=== PATIENT | male | born 1960 | race Hispanic/Latino ===

== ENCOUNTER 2020-08-20 11:33 | Inpatient (IN) | payer MEDICARE ==
[~2020-08-20] VITALS: Ht 167.6 cm; Wt 83.5 kg
[2020-08-20 11:50] LABS: ABG OXYGEN SATURATION 58.1 % (95.0-99.0); ABG PCO2 26 mmHg (35-48)
[2020-08-20] MEDS ORDERED: CEFTRIAXONE 1G VIAL ONE (12:06)
[2020-08-20] MEDS ORDERED: AZITHROMYCIN 500MG+NS 250ML 250 ML IV ONE (12:06)
[2020-08-20] MEDS ORDERED: DEXAMETHASONE SOD PHOSPHATE 10MG/ML 1ML VIAL ONE (12:06)
[2020-08-20 12:26] LABS: BASOPHILS % (AUTO) 0.2 % (0.0-5.0); EOSINOPHILS % (AUTO) 1.8 % (0.0-8.0); LYMPHOCYTES % (AUTO) 10.8 % (21.0-51.0); MEAN CORPUSCULAR HEMOGLOBIN 30.9 pg (27.0-33.0); MEAN CORPUSCULAR HGB CONC 34.3 g/dL (32.0-36.0); MEAN CORPUSCULAR VOLUME 90.1 fL (79-99); MONOCYTES % (AUTO) 6.9 % (3.0-13.0); NEUTROPHILS % (AUTO) 80.1 % (40.0-77.0); PLATELET COUNT (AUTO) 237 K/uL (130-400); RED BLOOD CELL COUNT(AUTO) 4.66 MIL/uL (4.50-6.20); RED CELL DISTRIBUTION WIDTH 13.2 % (11.0-15.5); WHITE BLOOD COUNT (AUTO) 9.3 K/uL (4.8-10.8)
[2020-08-20 12:32] LABS: CREATININE 1.1 mg/dL (0.5-1.5)
[2020-08-20 12:33] LABS: INR 1.06 (0.85-1.15); PROTHROMBIN TIME 11.3 SEC (9.6-11.6)
[2020-08-20 12:34] LABS: PARTIAL THROMBOPLASTIN TIME 28.8 SEC (26.3-35.5)
[2020-08-20 12:40] LABS: ALBUMIN 3.1 g/dL (3.5-5.0); BILIRUBIN,TOTAL 0.8 mg/dL (0.2-1.0); CRP QUANTITATIVE 179.7 mg/L (0.00-9.0); TOTAL PROTEIN, SERUM 7.6 g/dL (6.0-8.3); TROPONIN I 0.3 ng/mL (0.00-0.06)
[2020-08-20 14:01] LABS: ABG BASE EXCESS 1.8 mmol/L (-2.0-3.0); ABG HCO3 25.3 mmol/L (21.0-28.0); ABG OXYGEN SATURATION 82.8 % (95.0-99.0); ABG PCO2 37 mmHg (35-48)
[2020-08-20 14:18] LABS: ABG BASE EXCESS 1.1 mmol/L (-2.0-3.0); ABG HCO3 24.5 mmol/L (21.0-28.0); ABG OXYGEN SATURATION 84.1 % (95.0-99.0); ABG PCO2 35 mmHg (35-48)
[2020-08-20] MEDS ORDERED: ASPIRIN 325 MG TABLET ONE (15:00)
[2020-08-20] MEDS ORDERED: DOXYCYCLINE 100MG+NS 250ML IV SCH (15:30)
[2020-08-20] MEDS ORDERED: CEFEPIME HCL 2 GM VIAL IVP SCH (15:30)
[2020-08-20] MEDS ORDERED: ERGOCALCIFEROL (VITAMIN D2) 50,000 UNIT CAPSULE PO ONE (15:30)
[2020-08-20 15:33] LABS: APPEARANCE,URINE Clear (CLEAR); BILIRUBIN,URINE Small (NEGATIVE); COLOR,URINE Dark Yellow (YELLOW); GLUCOSE, URINE (UA) >=1000 mg/dL (NEGATIVE); KETONES,URINE Trace mg/dL (NEGATIVE); LEUKOCYTE ESTERASE ,URINE Negative (NEGATIVE); NITRATE,URINE Negative (NEGATIVE); OCCULT BLOOD,URINE Negative (NEGATIVE); PH,URINE 5.5 (5.0-8.0); PROTEIN,URINE POS 1+ mg/dL (NEGATIVE)
[2020-08-20] MEDS ORDERED: CEFEPIME HCL 2 GM VIAL ONE (15:55)
[2020-08-20] MEDS ORDERED: INSULIN HUMULIN R 100 UNIT/ML 3ML ONE (15:56)
[2020-08-20] MEDS ORDERED: PHARMACY COMMUNICATION***REMDESIVIR ORDER MISC SCH (16:00)
[2020-08-20] MEDS ORDERED: DOXYCYCLINE 100MG+NS 250ML 250 ML IV SCH (16:00)
[2020-08-20] MEDS: INSULIN HUMULIN R 100 UNIT/ML 3ML SQ SCH ×2 (16:30→21:00)
[2020-08-20 16:43] LABS: BACTERIA,URINE Rare /HPF (None Seen); RBC,URINE 0-1 /HPF (0-1); SQUAMOUS EPITHELIAL CELL,UR Rare /HPF (0-2); WBC,URINE 0-1 /HPF (0-1)
[2020-08-20 17:04] LABS: THYROID STIMULATING HORMONE 1.52 uIU/mL (0.36-3.74)
[2020-08-20] MEDS ORDERED: TAMS-1 PO (18:16)
[2020-08-20] MEDS ORDERED: LISI2.5T13 PO (18:16)
[2020-08-20] MEDS ORDERED: AEC81 PO (18:16)
[2020-08-20] MEDS ORDERED: LOVA40TA2 PO (18:16)
[2020-08-20] MEDS ORDERED: CARV6.25 PO (18:16)
[2020-08-20] MEDS ORDERED: CETI10CA5 PO (18:16)
[2020-08-20 18:17] VITALS: BP 123/60
[2020-08-20 19:40] VITALS: BP 90/57
[2020-08-20] MEDS ORDERED: PHARMACY COMMUNICATION MISC SCH (20:30)
[2020-08-20] MEDS ORDERED: ACETYLCYSTEINE 600 MG CAPSULE PO SCH (21:00)
[2020-08-20] MEDS ORDERED: ACETYLCYSTEINE 600 MG CAPSULE ONE (21:04)
[2020-08-20] MEDS: FUROSEMIDE 20MG VIAL IV SCH (21:39)
[2020-08-20] MEDS: DEXAMETHASONE SOD PHOSPHATE 4 MG/ML 1ML VIAL IVP SCH (21:39)
[2020-08-20 23:51] VITALS: BP 108/67
[2020-08-21] MEDS: GUAIFENESIN-DM 200/20 MG 10 ML PO PRN (02:42)
[2020-08-21 03:44] VITALS: BP 106/64
[2020-08-21] MEDS ORDERED: PHARMACY COMMUNICATION MISC SCH (05:45)
[2020-08-21 06:21] LABS: CRP QUANTITATIVE 137.9 mg/L (0.00-9.0)
[2020-08-21] MEDS: INSULIN HUMULIN R 100 UNIT/ML 3ML SQ SCH ×4 (06:23→20:44)
[2020-08-21] MEDS ORDERED: COMPOUND IV REFRIGERATED 1 EACH IVSOLN MISC PRN (06:45)
[2020-08-21] MEDS ORDERED: REMDESIVIR (EUA) 520 200 MG in 0.9% NACL 250ML 250 ML IV ONE (06:45)
[2020-08-21] MEDS: FUROSEMIDE 20MG VIAL IV SCH ×2 (06:56→18:00)
[2020-08-21 07:25] LABS: BASOPHILS % (AUTO) 0.2 % (0.0-5.0); HEMATOCRIT 41.3 % (42-54); LYMPHOCYTES % (AUTO) 14.3 % (21.0-51.0); MEAN CORPUSCULAR HGB CONC 33.9 g/dL (32.0-36.0); MEAN CORPUSCULAR VOLUME 91.4 fL (79-99); MONOCYTES % (AUTO) 6.5 % (3.0-13.0); NEUTROPHILS % (AUTO) 78.7 % (40.0-77.0); PLATELET COUNT (AUTO) 243 K/uL (130-400); RED BLOOD CELL COUNT(AUTO) 4.52 MIL/uL (4.50-6.20); RED CELL DISTRIBUTION WIDTH 13.2 % (11.0-15.5); WHITE BLOOD COUNT (AUTO) 5.9 K/uL (4.8-10.8)
[2020-08-21 08:00] VITALS: BP 107/69
[2020-08-21 08:44] LABS: ALBUMIN 2.8 g/dL (3.5-5.0); BILIRUBIN,TOTAL 0.5 mg/dL (0.2-1.0); CREATININE 1.1 mg/dL (0.5-1.5); POTASSIUM 4.1 mmol/L (3.5-5.1)
[2020-08-21] MEDS ORDERED: CARVEDILOL 6.25 MG TABLET PO SCH (09:00)
[2020-08-21] MEDS: ZINC SULFATE 220 CAPSULE PO SCH (09:04)
[2020-08-21] MEDS: PANTOPRAZOLE 40 MG TAB DR PO SCH (09:04)
[2020-08-21] MEDS: ASCORBIC ACID 500 MG TAB PO SCH (09:04)
[2020-08-21] MEDS: DEXAMETHASONE SOD PHOSPHATE 4 MG/ML 1ML VIAL IVP SCH ×2 (09:05→20:43)
[2020-08-21] MEDS: ASPIRIN 81MG CHEW TAB PO SCH (09:05)
[2020-08-21] MEDS: TAMSULOSIN HCL 0.4 MG CAP.ER.24H PO SCH (10:47)
[2020-08-21 12:00] VITALS: BP 115/65
[2020-08-21 15:33] VITALS: BP 123/65
[2020-08-21] MEDS: ENOXAPARIN SODIUM 40 MG/0.4 ML SYRINGE SQ SCH (16:20)
[2020-08-21 17:40] VITALS: BP 123/71
[2020-08-21 20:04] VITALS: BP 144/95
[2020-08-21] MEDS: ATORVASTATIN 10 MG TABLET PO SCH (20:51)
[2020-08-22] VITALS (7 sets, daily range): BP systolic 106–120; BP diastolic 57–76
[2020-08-22 04:17] LABS: CRP QUANTITATIVE 70.9 mg/L (0.00-9.0)
[2020-08-22 04:29] LABS: BASOPHILS % (AUTO) 0.1 % (0.0-5.0); EOSINOPHILS % (AUTO) 1.8 % (0.0-8.0); HEMATOCRIT 43.5 % (42-54); LYMPHOCYTES % (AUTO) 10.4 % (21.0-51.0); MEAN CORPUSCULAR HEMOGLOBIN 30.6 pg (27.0-33.0); MEAN CORPUSCULAR HGB CONC 33.8 g/dL (32.0-36.0); MEAN CORPUSCULAR VOLUME 90.6 fL (79-99); MONOCYTES % (AUTO) 6.2 % (3.0-13.0); NEUTROPHILS % (AUTO) 81.2 % (40.0-77.0); PLATELET COUNT (AUTO) 318 K/uL (130-400); WHITE BLOOD COUNT (AUTO) 7.6 K/uL (4.8-10.8)
[2020-08-22 04:37] LABS: ALBUMIN 2.8 g/dL (3.5-5.0); BILIRUBIN,TOTAL 0.6 mg/dL (0.2-1.0); CREATININE 0.9 mg/dL (0.5-1.5); POTASSIUM 4.2 mmol/L (3.5-5.1); TOTAL PROTEIN, SERUM 7.1 g/dL (6.0-8.3)
[2020-08-22] MEDS: INSULIN HUMULIN R 100 UNIT/ML 3ML SQ SCH ×4 (05:42→22:08)
[2020-08-22] MEDS: PHARMACY COMMUNICATION MISC SCH (06:00)
[2020-08-22] MEDS: FUROSEMIDE 20MG VIAL IV SCH ×2 (06:22→18:14)
[2020-08-22] MEDS: ASCORBIC ACID 500 MG TAB PO SCH (08:21)
[2020-08-22] MEDS: PANTOPRAZOLE 40 MG TAB DR PO SCH (08:21)
[2020-08-22] MEDS: ZINC SULFATE 220 CAPSULE PO SCH (08:21)
[2020-08-22] MEDS: DEXAMETHASONE SOD PHOSPHATE 4 MG/ML 1ML VIAL IVP SCH ×2 (08:22→22:07)
[2020-08-22] MEDS: ENOXAPARIN SODIUM 40 MG/0.4 ML SYRINGE SQ SCH (08:22)
[2020-08-22] MEDS: ASPIRIN 81MG CHEW TAB PO SCH (08:22)
[2020-08-22] MEDS: TAMSULOSIN HCL 0.4 MG CAP.ER.24H PO SCH (08:26)
[2020-08-22] MEDS: REMDESIVIR (EUA) 520 100 MG in 0.9% NACL 250ML 250 ML IV SCH (13:14)
[2020-08-22] MEDS: ATORVASTATIN 10 MG TABLET PO SCH (22:12)
[2020-08-23] VITALS: BP 116/75
[2020-08-23] MEDS: GUAIFENESIN-DM 200/20 MG 10 ML PO PRN ×2 (03:43→20:58)
[2020-08-23 04:00] VITALS: BP 122/84
[2020-08-23 05:17] LABS: BASOPHILS % (AUTO) 0.1 % (0.0-5.0); EOSINOPHILS % (AUTO) 1.8 % (0.0-8.0); LYMPHOCYTES % (AUTO) 7.7 % (21.0-51.0); MEAN CORPUSCULAR HEMOGLOBIN 30.7 pg (27.0-33.0); MEAN CORPUSCULAR HGB CONC 33.8 g/dL (32.0-36.0); MEAN CORPUSCULAR VOLUME 90.9 fL (79-99); MONOCYTES % (AUTO) 6.2 % (3.0-13.0); PLATELET COUNT (AUTO) 336 K/uL (130-400); RED BLOOD CELL COUNT(AUTO) 4.95 MIL/uL (4.50-6.20); RED CELL DISTRIBUTION WIDTH 13.1 % (11.0-15.5); WHITE BLOOD COUNT (AUTO) 8.3 K/uL (4.8-10.8)
[2020-08-23 05:37] LABS: ALBUMIN 2.7 g/dL (3.5-5.0); BILIRUBIN,TOTAL 0.5 mg/dL (0.2-1.0); CREATININE 0.9 mg/dL (0.5-1.5); CRP QUANTITATIVE 38.5 mg/L (0.00-9.0); POTASSIUM 4.1 mmol/L (3.5-5.1); TOTAL PROTEIN, SERUM 7.2 g/dL (6.0-8.3)
[2020-08-23] MEDS: PHARMACY COMMUNICATION MISC SCH (06:00)
[2020-08-23] MEDS: INSULIN HUMULIN R 100 UNIT/ML 3ML SQ SCH ×4 (06:30→21:03)
[2020-08-23] MEDS: FUROSEMIDE 20MG VIAL IV SCH ×2 (06:35→18:12)
[2020-08-23 08:00] VITALS: BP 126/79
[2020-08-23] MEDS: TAMSULOSIN HCL 0.4 MG CAP.ER.24H PO SCH (08:30)
[2020-08-23] MEDS: ASPIRIN 81MG CHEW TAB PO SCH (08:30)
[2020-08-23] MEDS: ENOXAPARIN SODIUM 40 MG/0.4 ML SYRINGE SQ SCH (08:31)
[2020-08-23] MEDS: PANTOPRAZOLE 40 MG TAB DR PO SCH (08:31)
[2020-08-23] MEDS: ASCORBIC ACID 500 MG TAB PO SCH (08:31)
[2020-08-23] MEDS: ZINC SULFATE 220 CAPSULE PO SCH (08:31)
[2020-08-23] MEDS: DEXAMETHASONE SOD PHOSPHATE 4 MG/ML 1ML VIAL IVP SCH ×2 (08:42→20:58)
[2020-08-23] MEDS ORDERED: RENAL DOSE IV SCH (10:45)
[2020-08-23 12:00] VITALS: BP 116/86
[2020-08-23] MEDS: REMDESIVIR (EUA) 520 100 MG in 0.9% NACL 250ML 250 ML IV SCH (12:58)
[2020-08-23 16:00] VITALS: BP 104/48
[2020-08-23] MEDS ORDERED: 0.9% NACL 250ML 250 ML IV ONE (17:43)
[2020-08-23 20:38] VITALS: BP 113/72
[2020-08-23] MEDS: ATORVASTATIN 10 MG TABLET PO SCH (20:58)
[2020-08-24 00:02] VITALS: BP 114/66
[2020-08-24 04:17] VITALS: BP 110/62
[2020-08-24 06:06] LABS: BASOPHILS % (AUTO) 0.1 % (0.0-5.0); HEMATOCRIT 43.3 % (42-54); LYMPHOCYTES % (AUTO) 10.8 % (21.0-51.0); MEAN CORPUSCULAR HEMOGLOBIN 30.9 pg (27.0-33.0); MEAN CORPUSCULAR HGB CONC 34.2 g/dL (32.0-36.0); MEAN CORPUSCULAR VOLUME 90.4 fL (79-99); MONOCYTES % (AUTO) 6.2 % (3.0-13.0); NEUTROPHILS % (AUTO) 82.2 % (40.0-77.0); PLATELET COUNT (AUTO) 354 K/uL (130-400); RED BLOOD CELL COUNT(AUTO) 4.79 MIL/uL (4.50-6.20); WHITE BLOOD COUNT (AUTO) 10.6 K/uL (4.8-10.8)
[2020-08-24 06:34] LABS: ALBUMIN 2.7 g/dL (3.5-5.0); BILIRUBIN,TOTAL 0.5 mg/dL (0.2-1.0); CREATININE 0.9 mg/dL (0.5-1.5); CRP QUANTITATIVE 17.2 mg/L (0.00-9.0); POTASSIUM 3.9 mmol/L (3.5-5.1); TOTAL PROTEIN, SERUM 6.6 g/dL (6.0-8.3)
[2020-08-24] MEDS: INSULIN HUMULIN R 100 UNIT/ML 3ML SQ SCH ×4 (06:37→21:50)
[2020-08-24] MEDS: FUROSEMIDE 20MG VIAL IV SCH ×2 (06:48→21:46)
[2020-08-24] MEDS: ASCORBIC ACID 500 MG TAB PO SCH (08:22)
[2020-08-24] MEDS: DEXAMETHASONE SOD PHOSPHATE 4 MG/ML 1ML VIAL IVP SCH ×2 (08:22→21:46)
[2020-08-24] MEDS: ASPIRIN 81MG CHEW TAB PO SCH (08:22)
[2020-08-24] MEDS: TAMSULOSIN HCL 0.4 MG CAP.ER.24H PO SCH (08:22)
[2020-08-24] MEDS: ZINC SULFATE 220 CAPSULE PO SCH (08:23)
[2020-08-24] MEDS: PANTOPRAZOLE 40 MG TAB DR PO SCH (08:23)
[2020-08-24] MEDS: ENOXAPARIN SODIUM 40 MG/0.4 ML SYRINGE SQ SCH ×2 (08:23→21:48)
[2020-08-24 12:00] VITALS: BP 101/64
[2020-08-24] MEDS ORDERED: LIDOCAINE HCL-MPF 1% 2ML VIAL IV PRN (12:45)
[2020-08-24] MEDS: REMDESIVIR (EUA) 520 100 MG in 0.9% NACL 250ML 250 ML IV SCH (14:05)
[2020-08-24 16:00] VITALS: BP 106/67
[2020-08-24] MEDS: NACL NASAL SPRAY 120 SPRAY/BOTTLE NS SCH ×3 (16:01→21:00)
[2020-08-24 20:27] VITALS: BP 113/71
[2020-08-24] MEDS: GUAIFENESIN-DM 200/20 MG 10 ML PO PRN (21:45)
[2020-08-24] MEDS: ATORVASTATIN 10 MG TABLET PO SCH (21:45)
[2020-08-24 23:46] VITALS: BP 118/71
[2020-08-25 03:29] VITALS: BP 121/73
[2020-08-25] MEDS: INSULIN HUMULIN R 100 UNIT/ML 3ML SQ SCH ×4 (05:47→21:52)
[2020-08-25] MEDS: FUROSEMIDE 20MG VIAL IV SCH (05:55)
[2020-08-25 06:00] LABS: BASOPHILS % (AUTO) 0.1 % (0.0-5.0); LYMPHOCYTES % (AUTO) 6.6 % (21.0-51.0); MEAN CORPUSCULAR HGB CONC 33.4 g/dL (32.0-36.0); MEAN CORPUSCULAR VOLUME 89.9 fL (79-99); MONOCYTES % (AUTO) 4.1 % (3.0-13.0); NEUTROPHILS % (AUTO) 88.5 % (40.0-77.0); PLATELET COUNT (AUTO) 389 K/uL (130-400); RED BLOOD CELL COUNT(AUTO) 5.23 MIL/uL (4.50-6.20); RED CELL DISTRIBUTION WIDTH 12.9 % (11.0-15.5); WHITE BLOOD COUNT (AUTO) 11.6 K/uL (4.8-10.8)
[2020-08-25 06:34] LABS: ALBUMIN 2.7 g/dL (3.5-5.0); BILIRUBIN,TOTAL 0.7 mg/dL (0.2-1.0); CREATININE 0.8 mg/dL (0.5-1.5); CRP QUANTITATIVE 31.1 mg/L (0.00-9.0); MAGNESIUM 2.5 mg/dL (1.80-2.40); TOTAL PROTEIN, SERUM 6.7 g/dL (6.0-8.3)
[2020-08-25 08:00] VITALS: BP 111/74
[2020-08-25] MEDS: ASPIRIN 81MG CHEW TAB PO SCH (08:20)
[2020-08-25] MEDS: DEXAMETHASONE SOD PHOSPHATE 4 MG/ML 1ML VIAL IVP SCH ×2 (08:21→21:41)
[2020-08-25] MEDS: TAMSULOSIN HCL 0.4 MG CAP.ER.24H PO SCH (08:21)
[2020-08-25] MEDS: ASCORBIC ACID 500 MG TAB PO SCH (08:21)
[2020-08-25] MEDS: PANTOPRAZOLE 40 MG TAB DR PO SCH (08:21)
[2020-08-25] MEDS: ZINC SULFATE 220 CAPSULE PO SCH (08:21)
[2020-08-25] MEDS: ENOXAPARIN SODIUM 40 MG/0.4 ML SYRINGE SQ SCH ×2 (08:22→21:41)
[2020-08-25] MEDS: NACL NASAL SPRAY 120 SPRAY/BOTTLE NS SCH ×4 (08:30→21:52)
[2020-08-25 12:00] VITALS: BP 114/67
[2020-08-25] MEDS: FUROSEMIDE 20 MG TABLET PO SCH ×2 (12:36→21:42)
[2020-08-25] MEDS: REMDESIVIR (EUA) 520 100 MG in 0.9% NACL 250ML 250 ML IV SCH (15:11)
[2020-08-25 16:00] VITALS: BP 117/69
[2020-08-25 20:00] VITALS: BP 114/68
[2020-08-25] MEDS: ATORVASTATIN 10 MG TABLET PO SCH (21:42)
[2020-08-26] VITALS: BP 137/61
[2020-08-26 03:53] LABS: ABG BASE EXCESS 2.7 mmol/L (-2.0-3.0); ABG HCO3 25.8 mmol/L (21.0-28.0); ABG OXYGEN SATURATION 92.1 % (95.0-99.0); ABG PCO2 35 mmHg (35-48)
[2020-08-26 03:54] VITALS: BP 115/60
[2020-08-26 05:31] LABS: BASOPHILS % (AUTO) 0.2 % (0.0-5.0); HEMATOCRIT 45.7 % (42-54); LYMPHOCYTES % (AUTO) 5.9 % (21.0-51.0); MEAN CORPUSCULAR HEMOGLOBIN 31.3 pg (27.0-33.0); MEAN CORPUSCULAR HGB CONC 35.4 g/dL (32.0-36.0); MEAN CORPUSCULAR VOLUME 88.2 fL (79-99); MONOCYTES % (AUTO) 2.6 % (3.0-13.0); NEUTROPHILS % (AUTO) 90.6 % (40.0-77.0); PLATELET COUNT (AUTO) 393 K/uL (130-400); RED BLOOD CELL COUNT(AUTO) 5.18 MIL/uL (4.50-6.20); RED CELL DISTRIBUTION WIDTH 12.7 % (11.0-15.5)
[2020-08-26 05:48] LABS: ALBUMIN 2.6 g/dL (3.5-5.0); BILIRUBIN,TOTAL 0.7 mg/dL (0.2-1.0); CREATININE 0.8 mg/dL (0.5-1.5); CRP QUANTITATIVE 38.5 mg/L (0.00-9.0); POTASSIUM 4.1 mmol/L (3.5-5.1); TOTAL PROTEIN, SERUM 6.8 g/dL (6.0-8.3)
[2020-08-26] MEDS: INSULIN HUMULIN R 100 UNIT/ML 3ML SQ SCH ×4 (06:12→20:49)
[2020-08-26 07:15] VITALS: BP 123/77
[2020-08-26] MEDS: ZINC SULFATE 220 CAPSULE PO SCH (09:38)
[2020-08-26] MEDS: ASCORBIC ACID 500 MG TAB PO SCH (09:38)
[2020-08-26] MEDS: TAMSULOSIN HCL 0.4 MG CAP.ER.24H PO SCH (09:39)
[2020-08-26] MEDS: PANTOPRAZOLE 40 MG TAB DR PO SCH (09:39)
[2020-08-26] MEDS: ASPIRIN 81MG CHEW TAB PO SCH (09:39)
[2020-08-26] MEDS: ENOXAPARIN SODIUM 40 MG/0.4 ML SYRINGE SQ SCH ×2 (09:40→21:22)
[2020-08-26] MEDS: NACL NASAL SPRAY 120 SPRAY/BOTTLE NS SCH ×4 (09:46→21:23)
[2020-08-26] MEDS: DEXAMETHASONE SOD PHOSPHATE 4 MG/ML 1ML VIAL IVP SCH ×2 (10:17→21:22)
[2020-08-26 10:32] VITALS: BP 116/70
[2020-08-26] MEDS: FUROSEMIDE 20 MG TABLET PO SCH ×2 (11:56→21:22)
[2020-08-26 15:11] VITALS: BP 99/57
[2020-08-26 20:42] VITALS: BP_SYST 115; BP_SYST 15; BP_DIAS 77
[2020-08-26] MEDS: ATORVASTATIN 10 MG TABLET PO SCH (21:21)
[2020-08-26] MEDS: GUAIFENESIN-DM 200/20 MG 10 ML PO PRN (21:22)
[2020-08-27] VITALS (7 sets, daily range): BP systolic 107–124; BP diastolic 51–82
[2020-08-27 05:50] LABS: BASOPHILS % (AUTO) 0.1 % (0.0-5.0); HEMATOCRIT 46.9 % (42-54); LYMPHOCYTES % (AUTO) 6.1 % (21.0-51.0); MEAN CORPUSCULAR HEMOGLOBIN 30.4 pg (27.0-33.0); MEAN CORPUSCULAR HGB CONC 34.5 g/dL (32.0-36.0); MONOCYTES % (AUTO) 3.2 % (3.0-13.0); NEUTROPHILS % (AUTO) 90.2 % (40.0-77.0); PLATELET COUNT (AUTO) 388 K/uL (130-400); RED BLOOD CELL COUNT(AUTO) 5.33 MIL/uL (4.50-6.20); RED CELL DISTRIBUTION WIDTH 12.8 % (11.0-15.5); WHITE BLOOD COUNT (AUTO) 11.3 K/uL (4.8-10.8)
[2020-08-27] MEDS: INSULIN HUMULIN R 100 UNIT/ML 3ML SQ SCH ×4 (05:55→21:00)
[2020-08-27 06:09] LABS: ALBUMIN 2.6 g/dL (3.5-5.0); BILIRUBIN,TOTAL 0.7 mg/dL (0.2-1.0); CREATININE 0.9 mg/dL (0.5-1.5); POTASSIUM 4.1 mmol/L (3.5-5.1); TOTAL PROTEIN, SERUM 6.8 g/dL (6.0-8.3)
[2020-08-27] MEDS: DEXAMETHASONE SOD PHOSPHATE 4 MG/ML 1ML VIAL IVP SCH ×2 (07:59→20:16)
[2020-08-27] MEDS: ASCORBIC ACID 500 MG TAB PO SCH (08:00)
[2020-08-27] MEDS: ZINC SULFATE 220 CAPSULE PO SCH (08:00)
[2020-08-27] MEDS: PANTOPRAZOLE 40 MG TAB DR PO SCH (08:01)
[2020-08-27] MEDS: DOCUSATE SODIUM 100 MG CAP PO SCH (08:01)
[2020-08-27] MEDS: TAMSULOSIN HCL 0.4 MG CAP.ER.24H PO SCH (08:01)
[2020-08-27] MEDS: ASPIRIN 81MG CHEW TAB PO SCH (08:01)
[2020-08-27] MEDS: ENOXAPARIN SODIUM 40 MG/0.4 ML SYRINGE SQ SCH ×2 (08:02→20:15)
[2020-08-27] MEDS: NACL NASAL SPRAY 120 SPRAY/BOTTLE NS SCH ×4 (08:02→20:16)
[2020-08-27] MEDS: FUROSEMIDE 20 MG TABLET PO SCH ×2 (12:55→22:42)
[2020-08-27] MEDS: ATORVASTATIN 10 MG TABLET PO SCH (20:15)
[2020-08-27] MEDS: GUAIFENESIN-DM 200/20 MG 10 ML PO PRN (22:42)
[2020-08-28 03:17] VITALS: BP 108/80
[2020-08-28 04:56] LABS: BASOPHILS % (AUTO) 0.2 % (0.0-5.0); HEMATOCRIT 50.9 % (42-54); LYMPHOCYTES % (AUTO) 4.3 % (21.0-51.0); MEAN CORPUSCULAR HEMOGLOBIN 30.9 pg (27.0-33.0); MEAN CORPUSCULAR HGB CONC 34.8 g/dL (32.0-36.0); MONOCYTES % (AUTO) 2.9 % (3.0-13.0); NEUTROPHILS % (AUTO) 92.1 % (40.0-77.0); PLATELET COUNT (AUTO) 398 K/uL (130-400); RED BLOOD CELL COUNT(AUTO) 5.72 MIL/uL (4.50-6.20); RED CELL DISTRIBUTION WIDTH 12.8 % (11.0-15.5); WHITE BLOOD COUNT (AUTO) 9.4 K/uL (4.8-10.8)
[2020-08-28 05:12] LABS: ALBUMIN 2.6 g/dL (3.5-5.0); BILIRUBIN,TOTAL 0.8 mg/dL (0.2-1.0); CREATININE 0.9 mg/dL (0.5-1.5); CRP QUANTITATIVE 28.3 mg/L (0.00-9.0); POTASSIUM 4.3 mmol/L (3.5-5.1); TOTAL PROTEIN, SERUM 7.1 g/dL (6.0-8.3)
[2020-08-28] MEDS: INSULIN HUMULIN R 100 UNIT/ML 3ML SQ SCH ×5 (05:19→21:24)
[2020-08-28 08:00] VITALS: BP 125/93
[2020-08-28] MEDS: DEXAMETHASONE SOD PHOSPHATE 4 MG/ML 1ML VIAL IVP SCH ×2 (08:58→21:19)
[2020-08-28] MEDS: TAMSULOSIN HCL 0.4 MG CAP.ER.24H PO SCH (08:59)
[2020-08-28] MEDS: ASPIRIN 81MG CHEW TAB PO SCH (08:59)
[2020-08-28] MEDS: ENOXAPARIN SODIUM 40 MG/0.4 ML SYRINGE SQ SCH ×2 (09:00→21:20)
[2020-08-28] MEDS: ASCORBIC ACID 500 MG TAB PO SCH (09:00)
[2020-08-28] MEDS: ZINC SULFATE 220 CAPSULE PO SCH (09:00)
[2020-08-28] MEDS: PANTOPRAZOLE 40 MG TAB DR PO SCH (09:00)
[2020-08-28] MEDS: DOCUSATE SODIUM 100 MG CAP PO SCH (09:00)
[2020-08-28] MEDS: NACL NASAL SPRAY 120 SPRAY/BOTTLE NS SCH ×4 (09:41→21:27)
[2020-08-28 11:22] LABS: ABG BASE EXCESS 3.1 mmol/L (-2.0-3.0); ABG HCO3 25.9 mmol/L (21.0-28.0); ABG OXYGEN SATURATION 90.2 % (95.0-99.0); ABG PCO2 35 mmHg (35-48)
[2020-08-28] MEDS: FUROSEMIDE 20MG VIAL IV SCH ×2 (11:33→21:19)
[2020-08-28 12:00] VITALS: BP 124/88
[2020-08-28 16:00] VITALS: BP 129/90
[2020-08-28 20:26] VITALS: BP 117/82
[2020-08-28] MEDS: ATORVASTATIN 10 MG TABLET PO SCH (21:19)
[2020-08-28] MEDS: GUAIFENESIN-DM 200/20 MG 10 ML PO PRN (21:19)
[2020-08-29] VITALS (26 sets, daily range): BP systolic 84–144; BP diastolic 43–105
[2020-08-29] MEDS: FUROSEMIDE 20MG VIAL IV SCH (04:50)
[2020-08-29 06:10] LABS: BASOPHILS % (AUTO) 0.1 % (0.0-5.0); HEMATOCRIT 52.1 % (42-54); MEAN CORPUSCULAR HEMOGLOBIN 30.4 pg (27.0-33.0); MEAN CORPUSCULAR HGB CONC 34.4 g/dL (32.0-36.0); MEAN CORPUSCULAR VOLUME 88.5 fL (79-99); MONOCYTES % (AUTO) 3.2 % (3.0-13.0); NEUTROPHILS % (AUTO) 92.2 % (40.0-77.0); PLATELET COUNT (AUTO) 398 K/uL (130-400); RED BLOOD CELL COUNT(AUTO) 5.89 MIL/uL (4.50-6.20)
[2020-08-29] MEDS: INSULIN HUMULIN R 100 UNIT/ML 3ML SQ SCH ×4 (06:29→20:34)
[2020-08-29 06:31] LABS: ALBUMIN 2.7 g/dL (3.5-5.0); BILIRUBIN,TOTAL 0.9 mg/dL (0.2-1.0); CREATININE 0.9 mg/dL (0.5-1.5); POTASSIUM 3.8 mmol/L (3.5-5.1); TOTAL PROTEIN, SERUM 7.3 g/dL (6.0-8.3)
[2020-08-29] MEDS: DEXAMETHASONE SOD PHOSPHATE 4 MG/ML 1ML VIAL IVP SCH (09:12)
[2020-08-29] MEDS: DOCUSATE SODIUM 100 MG CAP PO SCH (09:14)
[2020-08-29] MEDS: TAMSULOSIN HCL 0.4 MG CAP.ER.24H PO SCH (09:14)
[2020-08-29] MEDS: ASPIRIN 81MG CHEW TAB PO SCH (09:14)
[2020-08-29] MEDS: ASCORBIC ACID 500 MG TAB PO SCH (09:14)
[2020-08-29] MEDS: ENOXAPARIN SODIUM 40 MG/0.4 ML SYRINGE SQ SCH ×2 (09:14→20:31)
[2020-08-29] MEDS: ZINC SULFATE 220 CAPSULE PO SCH (09:14)
[2020-08-29] MEDS: PANTOPRAZOLE 40 MG TAB DR PO SCH (09:14)
[2020-08-29] MEDS: NACL NASAL SPRAY 120 SPRAY/BOTTLE NS SCH ×4 (09:15→20:48)
[2020-08-29] MEDS ORDERED: LORAZEPAM 2 MG/ML 1 ML VIAL IVP PRN (10:15)
[2020-08-29] MEDS ORDERED: DEXMEDETOMIDINE HCL 200 MCG in 0.9%NACL 50ML 50 ML IV SCH (10:30)
[2020-08-29] MEDS ORDERED: FENTANYL CITRATE PF 0.05 MG/ML 1,000 MCG in 0.9%NACL 100ML 100 ML IVPB SCH (10:40)
[2020-08-29] MEDS ORDERED: NOREPINEPHRIN 4MG/NS 250ML 250 ML IV SCH (10:45)
[2020-08-29] MEDS ORDERED: FENTANYL 2500MCG+NS 250ML 250 ML IV ONE (11:19)
[2020-08-29] MEDS ORDERED: PHARMACY COMMUNICATION MISC STA ×2 (11:24→12:52)
[2020-08-29] MEDS ORDERED: VASOPRESSIN 20 UNITS in 0.9%NACL 100ML 100 ML IV SCH (11:30)
[2020-08-29] MEDS ORDERED: PHENYLEPHRINE HCL 50 MG/NS 250ML IV PRN ×2 (11:30)
[2020-08-29] MEDS: LINEZOLID 600 MG/ISO-OSM 300 ML IV SCH ×2 (12:34→20:32)
[2020-08-29 12:36] LABS: ABG BASE EXCESS 0.1 mmol/L (-2.0-3.0); ABG HCO3 25.2 mmol/L (21.0-28.0); ABG OXYGEN SATURATION 89.8 % (95.0-99.0); ABG PCO2 42 mmHg (35-48)
[2020-08-29] MEDS ORDERED: PHARMACY COMMUNICATION MISC SCH (12:45)
[2020-08-29 13:07] LABS: INR 1.19 (0.85-1.15); PROTHROMBIN TIME 12.5 SEC (9.6-11.6)
[2020-08-29] MEDS: CEFEPIME HCL 2 GM VIAL IVP SCH ×2 (13:12→23:20)
[2020-08-29] MEDS: PROPOFOL 1000 MG/100 ML 100 ML IV SCH ×2 (14:14→20:36)
[2020-08-29] MEDS: ATORVASTATIN 10 MG TABLET PO SCH (20:30)
[2020-08-30] VITALS (39 sets, daily range): BP systolic 110–152; BP diastolic 67–96
[2020-08-30] MEDS: PROPOFOL 1000 MG/100 ML 100 ML IV SCH ×4 (00:20→22:08)
[2020-08-30] MEDS: VECURONIUM 10MG/10ML 50 MG in 0.9%NACL 50ML 50 ML IV SCH ×3 (01:47→22:06)
[2020-08-30 03:20] LABS: ABG BASE EXCESS 3.1 mmol/L (-2.0-3.0); ABG HCO3 29.6 mmol/L (21.0-28.0); ABG PCO2 52 mmHg (35-48)
[2020-08-30 04:39] LABS: BASOPHILS % (AUTO) 0.2 % (0.0-5.0); HEMATOCRIT 54.2 % (42-54); MEAN CORPUSCULAR HEMOGLOBIN 30.6 pg (27.0-33.0); MEAN CORPUSCULAR HGB CONC 33.2 g/dL (32.0-36.0); MEAN CORPUSCULAR VOLUME 92.2 fL (79-99); MONOCYTES % (AUTO) 3.3 % (3.0-13.0); NEUTROPHILS % (AUTO) 91.8 % (40.0-77.0); PLATELET COUNT (AUTO) 372 K/uL (130-400); RED BLOOD CELL COUNT(AUTO) 5.88 MIL/uL (4.50-6.20); RED CELL DISTRIBUTION WIDTH 13.2 % (11.0-15.5); WHITE BLOOD COUNT (AUTO) 19.1 K/uL (4.8-10.8)
[2020-08-30 05:32] LABS: ALBUMIN 2.6 g/dL (3.5-5.0); BILIRUBIN,TOTAL 0.7 mg/dL (0.2-1.0); CREATININE 0.9 mg/dL (0.5-1.5); CRP QUANTITATIVE 17.8 mg/L (0.00-9.0); POTASSIUM 4.3 mmol/L (3.5-5.1); TOTAL PROTEIN, SERUM 7.1 g/dL (6.0-8.3)
[2020-08-30] MEDS: INSULIN HUMULIN R 100 UNIT/ML 3ML SQ SCH ×4 (06:32→21:56)
[2020-08-30] MEDS: ENOXAPARIN SODIUM 40 MG/0.4 ML SYRINGE SQ SCH (09:00)
[2020-08-30] MEDS: ASPIRIN 81MG CHEW TAB PO SCH (09:04)
[2020-08-30] MEDS: MIDAZOLAM 100MG-0.9% NS 100ML 100 ML IV SCH ×2 (09:04→22:09)
[2020-08-30] MEDS: TAMSULOSIN HCL 0.4 MG CAP.ER.24H PO SCH (09:05)
[2020-08-30] MEDS: ZINC SULFATE 220 CAPSULE PO SCH (09:05)
[2020-08-30] MEDS: DOCUSATE SODIUM 100 MG CAP PO SCH (09:05)
[2020-08-30] MEDS: NACL NASAL SPRAY 120 SPRAY/BOTTLE NS SCH ×4 (09:05→20:20)
[2020-08-30] MEDS: ASCORBIC ACID 500 MG TAB PO SCH (09:05)
[2020-08-30] MEDS: PANTOPRAZOLE 40 MG TAB DR PO SCH (09:05)
[2020-08-30] MEDS: PANTOPRAZOLE 40 MG/VIAL IVP SCH (10:30)
[2020-08-30] MEDS ORDERED: PHARMACY COMMUNICATION MISC STA (11:00)
[2020-08-30] MEDS ORDERED: COMPOUND IV MISC 1 EACH IVSOLN MISC PRN (11:30)
[2020-08-30] MEDS ORDERED: COMPOUND IV REFRIGERATED 1 EACH IVSOLN MISC PRN (11:30)
[2020-08-30] MEDS: METHYLPREDNISOLONE SUCC IVP SCH (12:00)
[2020-08-30] MEDS: [UNRECOGNIZED DRUG - OTHER] IVP SCH (12:00)
[2020-08-30] MEDS: ARTIFICAL TEARS SOL 15 ML OU SCH ×3 (12:59→23:43)
[2020-08-30] MEDS ORDERED: FENTANYL 2500MCG+NS 250ML 250 ML IV ONE (13:09)
[2020-08-30] MEDS: LINEZOLID 600 MG/ISO-OSM 300 ML IV SCH ×2 (13:11→20:54)
[2020-08-30] MEDS: CEFEPIME HCL 2 GM VIAL IVP SCH ×2 (13:11→23:42)
[2020-08-30] MEDS: ATORVASTATIN 10 MG TABLET PO SCH (20:20)
[2020-08-30] MEDS ORDERED: DEXAMETHASONE SOD PHOSPHATE 4 MG/ML 1ML VIAL IV SCH (21:00)
[2020-08-31] VITALS (23 sets, daily range): BP systolic 76–143; BP diastolic 52–81
[2020-08-31] MEDS: PROPOFOL 1000 MG/100 ML 100 ML IV SCH ×4 (01:19→21:51)
[2020-08-31 03:45] LABS: ABG BASE EXCESS 2.9 mmol/L (-2.0-3.0); ABG HCO3 32.3 mmol/L (21.0-28.0); ABG OXYGEN SATURATION 96.6 % (95.0-99.0); ABG PCO2 72 mmHg (35-48)
[2020-08-31 04:53] LABS: BASOPHILS % (AUTO) 0.2 % (0.0-5.0); HEMATOCRIT 57.3 % (42-54); LYMPHOCYTES % (AUTO) 1.9 % (21.0-51.0); MEAN CORPUSCULAR HGB CONC 31.8 g/dL (32.0-36.0); MEAN CORPUSCULAR VOLUME 94.6 fL (79-99); MONOCYTES % (AUTO) 0.9 % (3.0-13.0); NEUTROPHILS % (AUTO) 96.3 % (40.0-77.0); PLATELET COUNT (AUTO) 258 K/uL (130-400); RED BLOOD CELL COUNT(AUTO) 6.06 MIL/uL (4.50-6.20); RED CELL DISTRIBUTION WIDTH 13.2 % (11.0-15.5); WHITE BLOOD COUNT (AUTO) 19.1 K/uL (4.8-10.8)
[2020-08-31 05:16] LABS: ALBUMIN 2.2 g/dL (3.5-5.0); BILIRUBIN,TOTAL 0.6 mg/dL (0.2-1.0); POTASSIUM 5.5 mmol/L (3.5-5.1); TOTAL PROTEIN, SERUM 6.9 g/dL (6.0-8.3)
[2020-08-31] MEDS: ARTIFICAL TEARS SOL 15 ML OU SCH ×4 (05:24→23:02)
[2020-08-31 05:31] LABS: CRP QUANTITATIVE 189.3 mg/L (0.00-9.0)
[2020-08-31] MEDS: INSULIN HUMULIN R 100 UNIT/ML 3ML SQ SCH ×4 (06:25→21:27)
[2020-08-31] MEDS ORDERED: CALCIUM GLUC 1GM/10ML VIAL IV SCH (08:30)
[2020-08-31] MEDS: TAMSULOSIN HCL 0.4 MG CAP.ER.24H PO SCH (08:47)
[2020-08-31] MEDS: DOCUSATE SODIUM 100 MG CAP PO SCH (08:47)
[2020-08-31] MEDS: ASCORBIC ACID 500 MG TAB PO SCH (08:47)
[2020-08-31] MEDS: ZINC SULFATE 220 CAPSULE PO SCH (08:47)
[2020-08-31] MEDS: DEXAMETHASONE SOD PHOSPHATE 4 MG/ML 1ML VIAL IV SCH ×3 (08:47→20:17)
[2020-08-31] MEDS: ASPIRIN 81MG CHEW TAB PO SCH (08:48)
[2020-08-31] MEDS: KAYEXALATE 15GM/60ML NG SCH (08:54)
[2020-08-31] MEDS ORDERED: INSULIN GLARGINE 100 UNITS/ML 10 ML VIAL SQ SCH ×2 (09:00→14:15)
[2020-08-31] MEDS: NACL NASAL SPRAY 120 SPRAY/BOTTLE NS SCH ×4 (09:21→20:17)
[2020-08-31] MEDS: CALCIUM GLUC 1GM 1 GM in 0.9%NACL 100ML 100 ML IV SCH (09:21)
[2020-08-31] MEDS: MIDAZOLAM 100MG-0.9% NS 100ML 100 ML IV SCH ×2 (09:22→23:45)
[2020-08-31] MEDS: PANTOPRAZOLE 40 MG/VIAL IVP SCH (09:38)
[2020-08-31] MEDS: LINEZOLID 600 MG/ISO-OSM 300 ML IV SCH ×2 (10:50→21:36)
[2020-08-31] MEDS: CEFEPIME HCL 2 GM VIAL IVP SCH ×2 (10:50→21:36)
[2020-08-31] MEDS: METHYLPREDNISOLONE SUCC IVP SCH (12:51)
[2020-08-31] MEDS: [UNRECOGNIZED DRUG - OTHER] IVP SCH (12:51)
[2020-08-31] MEDS: VECURONIUM 10MG/10ML 50 MG in 0.9%NACL 50ML 50 ML IV SCH (16:45)
[2020-08-31 18:25] LABS: CREATININE 1.1 mg/dL (0.5-1.5); MAGNESIUM 3.6 mg/dL (1.80-2.40); POTASSIUM 4.6 mmol/L (3.5-5.1)
[2020-08-31] MEDS: ATORVASTATIN 10 MG TABLET PO SCH (20:17)
[2020-09-01] VITALS (24 sets, daily range): BP systolic 83–110; BP diastolic 56–76
[2020-09-01] MEDS: PROPOFOL 1000 MG/100 ML 100 ML IV SCH ×2 (04:57→15:04)
[2020-09-01 05:53] LABS: BASOPHILS % (AUTO) 0.1 % (0.0-5.0); HEMATOCRIT 51.5 % (42-54); LYMPHOCYTES % (AUTO) 2.9 % (21.0-51.0); MEAN CORPUSCULAR HEMOGLOBIN 30.6 pg (27.0-33.0); MEAN CORPUSCULAR HGB CONC 32.4 g/dL (32.0-36.0); MEAN CORPUSCULAR VOLUME 94.3 fL (79-99); MONOCYTES % (AUTO) 2.5 % (3.0-13.0); NEUTROPHILS % (AUTO) 94.1 % (40.0-77.0); PLATELET COUNT (AUTO) 200 K/uL (130-400); RED BLOOD CELL COUNT(AUTO) 5.46 MIL/uL (4.50-6.20); RED CELL DISTRIBUTION WIDTH 13.4 % (11.0-15.5); WHITE BLOOD COUNT (AUTO) 10.3 K/uL (4.8-10.8)
[2020-09-01 05:57] LABS: CREATININE 1.1 mg/dL (0.5-1.5); CRP QUANTITATIVE 83.1 mg/L (0.00-9.0); POTASSIUM 4.7 mmol/L (3.5-5.1)
[2020-09-01] MEDS: ARTIFICAL TEARS SOL 15 ML OU SCH ×4 (05:58→23:17)
[2020-09-01] MEDS: INSULIN HUMULIN R 100 UNIT/ML 3ML SQ SCH ×4 (06:28→21:30)
[2020-09-01] MEDS: KAYEXALATE 15GM/60ML NG SCH (08:15)
[2020-09-01] MEDS: TAMSULOSIN HCL 0.4 MG CAP.ER.24H PO SCH (08:24)
[2020-09-01] MEDS: DEXAMETHASONE SOD PHOSPHATE 4 MG/ML 1ML VIAL IV SCH ×3 (08:24→21:29)
[2020-09-01] MEDS: ASCORBIC ACID 500 MG TAB PO SCH (08:24)
[2020-09-01] MEDS: ZINC SULFATE 220 CAPSULE PO SCH (08:24)
[2020-09-01] MEDS: ASPIRIN 81MG CHEW TAB PO SCH (08:24)
[2020-09-01] MEDS: PANTOPRAZOLE 40 MG/VIAL IVP SCH (08:24)
[2020-09-01] MEDS: DOCUSATE SODIUM 100 MG CAP PO SCH (08:24)
[2020-09-01] MEDS: NACL NASAL SPRAY 120 SPRAY/BOTTLE NS SCH ×4 (08:25→21:29)
[2020-09-01] MEDS: CALCIUM GLUC 1GM 1 GM in 0.9%NACL 100ML 100 ML IV SCH (08:30)
[2020-09-01 09:05] LABS: ABG BASE EXCESS 7.3 mmol/L (-2.0-3.0); ABG HCO3 36.3 mmol/L (21.0-28.0); ABG PCO2 72 mmHg (35-48)
[2020-09-01] MEDS: CEFEPIME HCL 2 GM VIAL IVP SCH ×2 (10:47→22:02)
[2020-09-01] MEDS: LINEZOLID 600 MG/ISO-OSM 300 ML IV SCH ×2 (10:47→21:29)
[2020-09-01] MEDS ORDERED: FENTANYL 2500MCG+NS 250ML 250 ML IV ONE (14:33)
[2020-09-01] MEDS: VECURONIUM 10MG/10ML 50 MG in 0.9%NACL 50ML 50 ML IV SCH (14:37)
[2020-09-01] MEDS: MIDAZOLAM 100MG-0.9% NS 100ML 100 ML IV SCH (14:37)
[2020-09-01] MEDS ORDERED: INSULIN GLARGINE 100 UNITS/ML 10 ML VIAL SQ SCH (21:00)
[2020-09-01] MEDS: FUROSEMIDE 40MG VIAL IVP SCH (21:29)
[2020-09-01] MEDS: ATORVASTATIN 10 MG TABLET PO SCH (21:29)
[2020-09-02] VITALS (24 sets, daily range): BP systolic 88–125; BP diastolic 55–78
[2020-09-02 03:32] LABS: ABG BASE EXCESS 8.6 mmol/L (-2.0-3.0); ABG HCO3 37.5 mmol/L (21.0-28.0); ABG OXYGEN SATURATION 94.6 % (95.0-99.0); ABG PCO2 71 mmHg (35-48)
[2020-09-02 05:00] LABS: BASOPHILS % (AUTO) 0.1 % (0.0-5.0); HEMATOCRIT 50.9 % (42-54); LYMPHOCYTES % (AUTO) 3.1 % (21.0-51.0); MEAN CORPUSCULAR HEMOGLOBIN 30.4 pg (27.0-33.0); MEAN CORPUSCULAR HGB CONC 31.6 g/dL (32.0-36.0); MEAN CORPUSCULAR VOLUME 96.2 fL (79-99); MONOCYTES % (AUTO) 5.1 % (3.0-13.0); NEUTROPHILS % (AUTO) 91.2 % (40.0-77.0); PLATELET COUNT (AUTO) 164 K/uL (130-400); RED BLOOD CELL COUNT(AUTO) 5.29 MIL/uL (4.50-6.20); RED CELL DISTRIBUTION WIDTH 13.4 % (11.0-15.5); WHITE BLOOD COUNT (AUTO) 9.3 K/uL (4.8-10.8)
[2020-09-02 05:18] LABS: BILIRUBIN,TOTAL 0.4 mg/dL (0.2-1.0); CRP QUANTITATIVE 29.9 mg/L (0.00-9.0); TOTAL PROTEIN, SERUM 6.2 g/dL (6.0-8.3)
[2020-09-02] MEDS: ARTIFICAL TEARS SOL 15 ML OU SCH ×4 (05:51→23:49)
[2020-09-02] MEDS: FUROSEMIDE 40MG VIAL IVP SCH ×3 (06:08→21:00)
[2020-09-02] MEDS: INSULIN HUMULIN R 100 UNIT/ML 3ML SQ SCH ×4 (06:25→23:37)
[2020-09-02] MEDS: DEXAMETHASONE SOD PHOSPHATE 4 MG/ML 1ML VIAL IV SCH ×3 (09:00→20:58)
[2020-09-02] MEDS: DOCUSATE SODIUM 100 MG CAP PO SCH (09:01)
[2020-09-02] MEDS: ASPIRIN 81MG CHEW TAB PO SCH (09:01)
[2020-09-02] MEDS: ASCORBIC ACID 500 MG TAB PO SCH (09:01)
[2020-09-02] MEDS: TAMSULOSIN HCL 0.4 MG CAP.ER.24H PO SCH (09:01)
[2020-09-02] MEDS: ZINC SULFATE 220 CAPSULE PO SCH (09:01)
[2020-09-02] MEDS: NACL NASAL SPRAY 120 SPRAY/BOTTLE NS SCH ×4 (09:24→20:58)
[2020-09-02] MEDS: PANTOPRAZOLE 40 MG/VIAL IVP SCH (09:44)
[2020-09-02] MEDS: VECURONIUM 10MG/10ML 50 MG in 0.9%NACL 50ML 50 ML IV SCH (09:45)
[2020-09-02] MEDS: INSULIN GLARGINE 100 UNITS/ML 10 ML VIAL SQ SCH ×2 (10:53→23:38)
[2020-09-02] MEDS: CEFEPIME HCL 2 GM VIAL IVP SCH ×2 (10:54→21:00)
[2020-09-02] MEDS: PROPOFOL 1000 MG/100 ML 100 ML IV SCH ×2 (10:54→16:41)
[2020-09-02] MEDS: LINEZOLID 600 MG/ISO-OSM 300 ML IV SCH ×2 (10:55→21:00)
[2020-09-02] MEDS: ATORVASTATIN 10 MG TABLET PO SCH (20:58)
[2020-09-02] MEDS ORDERED: INSULIN GLARGINE 100 UNITS/ML 10 ML VIAL SQ SCH (21:00)
[2020-09-02] MEDS: MIDAZOLAM 100MG-0.9% NS 100ML 100 ML IV SCH (21:36)
[2020-09-03] VITALS (37 sets, daily range): BP systolic 89–136; BP diastolic 60–85
[2020-09-03 04:39] LABS: BASOPHILS % (AUTO) 0.1 % (0.0-5.0); HEMATOCRIT 51.4 % (42-54); LYMPHOCYTES % (AUTO) 3.7 % (21.0-51.0); MEAN CORPUSCULAR HEMOGLOBIN 30.3 pg (27.0-33.0); MEAN CORPUSCULAR HGB CONC 31.5 g/dL (32.0-36.0); MEAN CORPUSCULAR VOLUME 96.3 fL (79-99); MONOCYTES % (AUTO) 6.1 % (3.0-13.0); NEUTROPHILS % (AUTO) 89.7 % (40.0-77.0); PLATELET COUNT (AUTO) 162 K/uL (130-400); RED BLOOD CELL COUNT(AUTO) 5.34 MIL/uL (4.50-6.20); RED CELL DISTRIBUTION WIDTH 13.2 % (11.0-15.5); WHITE BLOOD COUNT (AUTO) 10.4 K/uL (4.8-10.8)
[2020-09-03 05:18] LABS: ALBUMIN 2.2 g/dL (3.5-5.0); BILIRUBIN,TOTAL 0.4 mg/dL (0.2-1.0); CRP QUANTITATIVE 6.5 mg/L (0.00-9.0); POTASSIUM 5.6 mmol/L (3.5-5.1); TOTAL PROTEIN, SERUM 5.6 g/dL (6.0-8.3)
[2020-09-03 05:25] LABS: ABG BASE EXCESS 10.5 mmol/L (-2.0-3.0); ABG HCO3 40.1 mmol/L (21.0-28.0); ABG OXYGEN SATURATION 92.5 % (95.0-99.0); ABG PCO2 78 mmHg (35-48)
[2020-09-03] MEDS: INSULIN HUMULIN R 100 UNIT/ML 3ML SQ SCH ×4 (06:23→21:08)
[2020-09-03] MEDS: FUROSEMIDE 40MG VIAL IVP SCH ×3 (06:28→21:10)
[2020-09-03] MEDS: ARTIFICAL TEARS SOL 15 ML OU SCH ×4 (06:28→23:32)
[2020-09-03] MEDS ORDERED: KAYEXALATE 15GM/60ML NG SCH (08:30)
[2020-09-03] MEDS: ASCORBIC ACID 500 MG TAB PO SCH (08:45)
[2020-09-03] MEDS: TAMSULOSIN HCL 0.4 MG CAP.ER.24H PO SCH (08:45)
[2020-09-03] MEDS: ASPIRIN 81MG CHEW TAB PO SCH (08:45)
[2020-09-03] MEDS: ZINC SULFATE 220 CAPSULE PO SCH (08:45)
[2020-09-03] MEDS: DOCUSATE SODIUM 100 MG CAP PO SCH (08:45)
[2020-09-03] MEDS: DEXAMETHASONE SOD PHOSPHATE 4 MG/ML 1ML VIAL IV SCH ×2 (08:46→20:30)
[2020-09-03] MEDS: PANTOPRAZOLE 40 MG/VIAL IVP SCH (08:46)
[2020-09-03] MEDS: NACL NASAL SPRAY 120 SPRAY/BOTTLE NS SCH ×4 (08:47→20:57)
[2020-09-03] MEDS: INSULIN GLARGINE 100 UNITS/ML 10 ML VIAL SQ SCH ×2 (08:54→20:31)
[2020-09-03] MEDS: LINEZOLID 600 MG/ISO-OSM 300 ML IV SCH ×2 (12:08→22:08)
[2020-09-03] MEDS: CEFEPIME HCL 2 GM VIAL IVP SCH ×2 (12:08→22:08)
[2020-09-03] MEDS: PROPOFOL 1000 MG/100 ML 100 ML IV SCH ×2 (14:35→22:09)
[2020-09-03] MEDS: MIDAZOLAM 100MG-0.9% NS 100ML 100 ML IV SCH (14:40)
[2020-09-03] MEDS ORDERED: FENTANYL 2500MCG+NS 250ML 250 ML IV ONE (14:47)
[2020-09-03] MEDS ORDERED: METOPROLOL TARTRATE 1 MG/ML 5ML VIAL IV ONE (15:27)
[2020-09-03] MEDS ORDERED: METOPROLOL TARTRATE 1 MG/ML 5ML VIAL IV SCH (15:30)
[2020-09-03] MEDS: ATORVASTATIN 10 MG TABLET PO SCH (20:30)
[2020-09-03] MEDS: METOPROLOL TARTRATE 25 MG TAB PO SCH (20:30)
[2020-09-03] MEDS: ACETAMINOPHEN 325 MG TAB PO PRN (22:08)
[2020-09-03] MEDS: VECURONIUM 10MG/10ML 50 MG in 0.9%NACL 50ML 50 ML IV SCH (23:37)
[2020-09-04] VITALS (51 sets, daily range): BP systolic 75–123; BP diastolic 49–72
[2020-09-04 03:54] LABS: ABG BASE EXCESS 16.6 mmol/L (-2.0-3.0); ABG HCO3 44.8 mmol/L (21.0-28.0); ABG OXYGEN SATURATION 92.3 % (95.0-99.0); ABG PCO2 68 mmHg (35-48)
[2020-09-04] MEDS: ACETAMINOPHEN 325 MG TAB PO PRN (04:06)
[2020-09-04] MEDS: PROPOFOL 1000 MG/100 ML 100 ML IV SCH ×3 (04:35→18:49)
[2020-09-04] MEDS: MIDAZOLAM 100MG-0.9% NS 100ML 100 ML IV SCH ×2 (04:36→18:47)
[2020-09-04 04:54] LABS: BASOPHILS % (AUTO) 0.1 % (0.0-5.0); HEMATOCRIT 51.1 % (42-54); LYMPHOCYTES % (AUTO) 5.3 % (21.0-51.0); MEAN CORPUSCULAR HEMOGLOBIN 30.4 pg (27.0-33.0); MEAN CORPUSCULAR HGB CONC 31.5 g/dL (32.0-36.0); MEAN CORPUSCULAR VOLUME 96.4 fL (79-99); MONOCYTES % (AUTO) 6.3 % (3.0-13.0); NEUTROPHILS % (AUTO) 87.8 % (40.0-77.0); PLATELET COUNT (AUTO) 132 K/uL (130-400); RED CELL DISTRIBUTION WIDTH 13.9 % (11.0-15.5); WHITE BLOOD COUNT (AUTO) 11.5 K/uL (4.8-10.8)
[2020-09-04 05:15] LABS: ALBUMIN 2.1 g/dL (3.5-5.0); BILIRUBIN,TOTAL 0.5 mg/dL (0.2-1.0); CRP QUANTITATIVE 5.8 mg/L (0.00-9.0); POTASSIUM 4.5 mmol/L (3.5-5.1); TOTAL PROTEIN, SERUM 5.8 g/dL (6.0-8.3)
[2020-09-04] MEDS: ARTIFICAL TEARS SOL 15 ML OU SCH ×3 (05:16→17:38)
[2020-09-04] MEDS: FUROSEMIDE 40MG VIAL IVP SCH ×2 (05:16→13:07)
[2020-09-04] MEDS: INSULIN HUMULIN R 100 UNIT/ML 3ML SQ SCH ×4 (05:55→20:55)
[2020-09-04] MEDS: ZINC SULFATE 220 CAPSULE PO SCH (09:05)
[2020-09-04] MEDS: DOCUSATE SODIUM 100 MG CAP PO SCH (09:05)
[2020-09-04] MEDS: INSULIN GLARGINE 100 UNITS/ML 10 ML VIAL SQ SCH ×2 (09:05→20:53)
[2020-09-04] MEDS: NACL NASAL SPRAY 120 SPRAY/BOTTLE NS SCH ×4 (09:06→21:10)
[2020-09-04] MEDS: DEXAMETHASONE SOD PHOSPHATE 4 MG/ML 1ML VIAL IV SCH ×2 (09:06→20:52)
[2020-09-04] MEDS: TAMSULOSIN HCL 0.4 MG CAP.ER.24H PO SCH (09:06)
[2020-09-04] MEDS: ASPIRIN 81MG CHEW TAB PO SCH (09:06)
[2020-09-04] MEDS: ASCORBIC ACID 500 MG TAB PO SCH (09:06)
[2020-09-04] MEDS: METOPROLOL TARTRATE 25 MG TAB PO SCH ×2 (09:06→20:56)
[2020-09-04] MEDS: PANTOPRAZOLE 40 MG/VIAL IVP SCH (09:11)
[2020-09-04] MEDS: CEFEPIME HCL 2 GM VIAL IVP SCH (10:48)
[2020-09-04] MEDS: VECURONIUM 10MG/10ML 50 MG in 0.9%NACL 50ML 50 ML IV SCH (14:18)
[2020-09-04 18:18] LABS: APPEARANCE,URINE CLOUDY (CLEAR); BILIRUBIN,URINE NEGATIVE (NEGATIVE); COLOR,URINE YELLOW (YELLOW); GLUCOSE, URINE (UA) 500 mg/dL (NEGATIVE); KETONES,URINE NEGATIVE (NEGATIVE); LEUKOCYTE ESTERASE ,URINE NEGATIVE (NEGATIVE); NITRATE,URINE NEGATIVE (NEGATIVE); OCCULT BLOOD,URINE NEGATIVE (NEGATIVE); PROTEIN,URINE TRACE mg/dL (NEGATIVE); UROBILINOGEN,URINE 0.2 mg/dL (0.2-1.0)
[2020-09-04 18:32] LABS: BACTERIA,URINE Rare /HPF (None Seen); RBC,URINE 0-1 /HPF (0-1); WBC,URINE 0-1 /HPF (0-1); YEAST,URINE BUDDING Moderate /HPF (None Seen)
[2020-09-04 18:33] LABS: SQUAMOUS EPITHELIAL CELL,UR Rare /HPF (0-2)
[2020-09-04] MEDS ORDERED: NOREPINEPHRIN 4MG/NS 250ML 250 ML IV ONE (20:25)
[2020-09-04] MEDS ORDERED: NOREPINEPHRIN 4MG/NS 250ML 250 ML IV SCH (20:50)
[2020-09-04] MEDS: ENOXAPARIN SODIUM 40 MG/0.4 ML SYRINGE SQ SCH (20:51)
[2020-09-04] MEDS: ATORVASTATIN 10 MG TABLET PO SCH (20:51)
[2020-09-04] MEDS: PHENYLEPHRINE HCL 50 MG in 0.9% NACL 250ML 250 ML IV PRN (22:19)
[2020-09-04] MEDS: LINEZOLID 600 MG/ISO-OSM 300 ML IV SCH (22:20)
[2020-09-05] VITALS (83 sets, daily range): BP systolic 84–116; BP diastolic 56–73
[2020-09-05] MEDS: ARTIFICAL TEARS SOL 15 ML OU SCH ×5 (00:45→23:19)
[2020-09-05] MEDS: ACETAMINOPHEN 325 MG TAB PO PRN (02:59)
[2020-09-05] MEDS: VECURONIUM 10MG/10ML 50 MG in 0.9%NACL 50ML 50 ML IV SCH ×3 (02:59→23:21)
[2020-09-05 03:45] LABS: ABG BASE EXCESS 16.5 mmol/L (-2.0-3.0); ABG HCO3 44.3 mmol/L (21.0-28.0); ABG OXYGEN SATURATION 86.7 % (95.0-99.0); ABG PCO2 66 mmHg (35-48)
[2020-09-05] MEDS: PROPOFOL 1000 MG/100 ML 100 ML IV SCH ×2 (04:47→14:22)
[2020-09-05] MEDS: MIDAZOLAM 100MG-0.9% NS 100ML 100 ML IV SCH ×2 (04:48→14:23)
[2020-09-05 05:35] LABS: BASOPHILS % (AUTO) 0.1 % (0.0-5.0); HEMATOCRIT 49.8 % (42-54); LYMPHOCYTES % (AUTO) 4.3 % (21.0-51.0); MEAN CORPUSCULAR HEMOGLOBIN 30.6 pg (27.0-33.0); MEAN CORPUSCULAR HGB CONC 31.9 g/dL (32.0-36.0); MONOCYTES % (AUTO) 4.4 % (3.0-13.0); NEUTROPHILS % (AUTO) 90.8 % (40.0-77.0); PLATELET COUNT (AUTO) 112 K/uL (130-400); RED BLOOD CELL COUNT(AUTO) 5.19 MIL/uL (4.50-6.20); RED CELL DISTRIBUTION WIDTH 13.6 % (11.0-15.5); WHITE BLOOD COUNT (AUTO) 13.8 K/uL (4.8-10.8)
[2020-09-05 06:08] LABS: ALBUMIN 2.2 g/dL (3.5-5.0); BILIRUBIN,TOTAL 0.4 mg/dL (0.2-1.0); CRP QUANTITATIVE 4.8 mg/L (0.00-9.0); POTASSIUM 4.5 mmol/L (3.5-5.1); TOTAL PROTEIN, SERUM 5.8 g/dL (6.0-8.3)
[2020-09-05] MEDS: DOCUSATE SODIUM 100 MG CAP PO SCH (08:09)
[2020-09-05] MEDS: ASCORBIC ACID 500 MG TAB PO SCH (08:09)
[2020-09-05] MEDS: METOPROLOL TARTRATE 25 MG TAB PO SCH ×2 (08:09→21:00)
[2020-09-05] MEDS: DEXAMETHASONE SOD PHOSPHATE 4 MG/ML 1ML VIAL IV SCH ×2 (08:09→21:02)
[2020-09-05] MEDS: ZINC SULFATE 220 CAPSULE PO SCH (08:09)
[2020-09-05] MEDS: ASPIRIN 81MG CHEW TAB PO SCH (08:09)
[2020-09-05] MEDS: PANTOPRAZOLE 40 MG/VIAL IVP SCH (08:10)
[2020-09-05] MEDS: NACL NASAL SPRAY 120 SPRAY/BOTTLE NS SCH ×4 (08:10→21:03)
[2020-09-05] MEDS: ENOXAPARIN SODIUM 40 MG/0.4 ML SYRINGE SQ SCH ×2 (08:10→21:02)
[2020-09-05] MEDS: INSULIN GLARGINE 100 UNITS/ML 10 ML VIAL SQ SCH ×2 (08:15→21:05)
[2020-09-05] MEDS: INSULIN HUMULIN R 100 UNIT/ML 3ML SQ SCH ×4 (08:15→21:06)
[2020-09-05] MEDS: TAMSULOSIN HCL 0.4 MG CAP.ER.24H PO SCH (08:35)
[2020-09-05] MEDS ORDERED: INSULIN GLARGINE 100 UNITS/ML 10 ML VIAL SQ SCH (09:16)
[2020-09-05] MEDS: LINEZOLID 600 MG/ISO-OSM 300 ML IV SCH ×2 (12:20→23:19)
[2020-09-05] MEDS ORDERED: FENTANYL 2500MCG+NS 250ML 250 ML IV ONE (14:16)
[2020-09-05] MEDS: ATORVASTATIN 10 MG TABLET PO SCH (21:03)
[2020-09-06] VITALS (75 sets, daily range): BP systolic 89–116; BP diastolic 49–75
[2020-09-06] MEDS: MIDAZOLAM 100MG-0.9% NS 100ML 100 ML IV SCH ×2 (04:40→17:31)
[2020-09-06 04:48] LABS: HEMATOCRIT 45.4 % (42-54); MEAN CORPUSCULAR HEMOGLOBIN 29.8 pg (27.0-33.0); MEAN CORPUSCULAR HGB CONC 30.8 g/dL (32.0-36.0); MEAN CORPUSCULAR VOLUME 96.6 fL (79-99); PLATELET COUNT (AUTO) 91 K/uL (130-400); RED CELL DISTRIBUTION WIDTH 13.6 % (11.0-15.5); WHITE BLOOD COUNT (AUTO) 13.6 K/uL (4.8-10.8)
[2020-09-06 05:06] LABS: BILIRUBIN,TOTAL 0.4 mg/dL (0.2-1.0); CREATININE 0.8 mg/dL (0.5-1.5); CRP QUANTITATIVE 2.4 mg/L (0.00-9.0); POTASSIUM 4.7 mmol/L (3.5-5.1); TOTAL PROTEIN, SERUM 5.3 g/dL (6.0-8.3)
[2020-09-06] MEDS: ARTIFICAL TEARS SOL 15 ML OU SCH ×3 (05:15→17:15)
[2020-09-06 05:23] LABS: BAND NEUTROPHILS % (MANUAL) 4 % (0-2); LYMPHOCYTES % (MANUAL) 3 % (22-44); MAN.DIFF COMMENT-IMPRESSION MANUAL DIFFERENTIAL; MONOCYTES % (MANUAL) 4 % (2-9); SEGMENTED NEUTROPHILS % 89 % (40-70)
[2020-09-06 05:24] LABS: PLATELET MORPHOLOGY COMMENT DECREASED
[2020-09-06 08:04] LABS: ABG BASE EXCESS 17.6 mmol/L (-2.0-3.0); ABG HCO3 46.2 mmol/L (21.0-28.0); ABG OXYGEN SATURATION 91.7 % (95.0-99.0); ABG PCO2 72 mmHg (35-48)
[2020-09-06] MEDS: DEXAMETHASONE SOD PHOSPHATE 4 MG/ML 1ML VIAL IV SCH ×2 (10:08→20:54)
[2020-09-06] MEDS: TAMSULOSIN HCL 0.4 MG CAP.ER.24H PO SCH (10:08)
[2020-09-06] MEDS: ZINC SULFATE 220 CAPSULE PO SCH (10:08)
[2020-09-06] MEDS: METOPROLOL TARTRATE 25 MG TAB PO SCH ×2 (10:08→21:00)
[2020-09-06] MEDS: ASCORBIC ACID 500 MG TAB PO SCH (10:08)
[2020-09-06] MEDS: DOCUSATE SODIUM 100 MG CAP PO SCH (10:08)
[2020-09-06] MEDS: ENOXAPARIN SODIUM 40 MG/0.4 ML SYRINGE SQ SCH ×2 (10:08→20:57)
[2020-09-06] MEDS: NACL NASAL SPRAY 120 SPRAY/BOTTLE NS SCH ×4 (10:09→21:02)
[2020-09-06] MEDS: ASPIRIN 81MG CHEW TAB PO SCH (10:09)
[2020-09-06] MEDS: PANTOPRAZOLE 40 MG/VIAL IVP SCH (10:10)
[2020-09-06] MEDS: LINEZOLID 600 MG/ISO-OSM 300 ML IV SCH (10:10)
[2020-09-06] MEDS: INSULIN HUMULIN R 100 UNIT/ML 3ML SQ SCH ×4 (10:21→21:01)
[2020-09-06] MEDS: INSULIN GLARGINE 100 UNITS/ML 10 ML VIAL SQ SCH ×2 (10:23→21:00)
[2020-09-06] MEDS: PROPOFOL 1000 MG/100 ML 100 ML IV SCH ×2 (11:03→18:24)
[2020-09-06] MEDS ORDERED: VANCOMYCIN PROTOCOL PER PHARMACY IV SCH (14:15)
[2020-09-06] MEDS ORDERED: VANCOMYCIN 1G 1.75 GM in 0.9% NACL 250ML 250 ML IV ONE (16:00)
[2020-09-06] MEDS: VECURONIUM 10MG/10ML 50 MG in 0.9%NACL 50ML 50 ML IV SCH (17:39)
[2020-09-06] MEDS: ATORVASTATIN 10 MG TABLET PO SCH (20:57)
[2020-09-07] VITALS (78 sets, daily range): BP systolic 83–115; BP diastolic 54–70
[2020-09-07] MEDS: ARTIFICAL TEARS SOL 15 ML OU SCH ×4 (00:32→17:11)
[2020-09-07] MEDS: MIDAZOLAM 100MG-0.9% NS 100ML 100 ML IV SCH ×2 (05:01→14:03)
[2020-09-07] MEDS: PROPOFOL 1000 MG/100 ML 100 ML IV SCH ×2 (05:01→14:02)
[2020-09-07] MEDS: VANCOMYCIN 1G 1.25 GM in 0.9% NACL 250ML 250 ML IV SCH ×2 (05:04→17:10)
[2020-09-07 05:32] LABS: BASOPHILS % (AUTO) 0.1 % (0.0-5.0); LYMPHOCYTES % (AUTO) 2.2 % (21.0-51.0); MEAN CORPUSCULAR HEMOGLOBIN 30.7 pg (27.0-33.0); MEAN CORPUSCULAR HGB CONC 32.1 g/dL (32.0-36.0); MEAN CORPUSCULAR VOLUME 95.5 fL (79-99); NEUTROPHILS % (AUTO) 95.3 % (40.0-77.0); PLATELET COUNT (AUTO) 95 K/uL (130-400); RED CELL DISTRIBUTION WIDTH 13.2 % (11.0-15.5); WHITE BLOOD COUNT (AUTO) 16.9 K/uL (4.8-10.8)
[2020-09-07 06:05] LABS: CREATININE 0.6 mg/dL (0.5-1.5); CRP QUANTITATIVE 3.6 mg/L (0.00-9.0)
[2020-09-07] MEDS ORDERED: LACTULOSE 20 GM/30 ML UDCUP PO SCH (08:00)
[2020-09-07] MEDS ORDERED: LACTULOSE 20 GM/30 ML UDCUP PO PRN (08:45)
[2020-09-07] MEDS: DOCUSATE SODIUM 100 MG CAP PO SCH (09:19)
[2020-09-07] MEDS: TAMSULOSIN HCL 0.4 MG CAP.ER.24H PO SCH (09:20)
[2020-09-07] MEDS: ZINC SULFATE 220 CAPSULE PO SCH (09:20)
[2020-09-07] MEDS: DEXAMETHASONE SOD PHOSPHATE 4 MG/ML 1ML VIAL IV SCH (09:20)
[2020-09-07] MEDS: PANTOPRAZOLE 40 MG/VIAL IVP SCH (09:20)
[2020-09-07] MEDS: METOPROLOL TARTRATE 25 MG TAB PO SCH ×2 (09:20→20:42)
[2020-09-07] MEDS: NACL NASAL SPRAY 120 SPRAY/BOTTLE NS SCH ×4 (09:20→20:42)
[2020-09-07] MEDS: ASPIRIN 81MG CHEW TAB PO SCH (09:20)
[2020-09-07] MEDS: ASCORBIC ACID 500 MG TAB PO SCH (09:20)
[2020-09-07] MEDS: ENOXAPARIN SODIUM 40 MG/0.4 ML SYRINGE SQ SCH ×2 (09:24→20:23)
[2020-09-07] MEDS: INSULIN HUMULIN R 100 UNIT/ML 3ML SQ SCH ×4 (09:26→20:16)
[2020-09-07] MEDS: INSULIN GLARGINE 100 UNITS/ML 10 ML VIAL SQ SCH ×2 (09:27→20:26)
[2020-09-07] MEDS ORDERED: FENTANYL 2500MCG+NS 250ML 250 ML IV ONE (09:55)
[2020-09-07] MEDS: VECURONIUM 10MG/10ML 50 MG in 0.9%NACL 50ML 50 ML IV SCH (10:01)
[2020-09-07] MEDS: CEFTRIAXONE 1G VIAL IVP SCH (14:04)
[2020-09-07] MEDS: ATORVASTATIN 10 MG TABLET PO SCH (20:23)
[2020-09-07] MEDS: FUROSEMIDE 40MG VIAL IV SCH (20:24)
[2020-09-08] VITALS (83 sets, daily range): BP systolic 52–198; BP diastolic 20–101
[2020-09-08] MEDS: VECURONIUM 10MG/10ML 50 MG in 0.9%NACL 50ML 50 ML IV SCH ×2 (00:03→10:17)
[2020-09-08] MEDS: ARTIFICAL TEARS SOL 15 ML OU SCH ×4 (00:03→18:42)
[2020-09-08] MEDS: PROPOFOL 1000 MG/100 ML 100 ML IV SCH ×2 (01:16→10:18)
[2020-09-08 06:06] LABS: BASOPHILS % (AUTO) 0.2 % (0.0-5.0); EOSINOPHILS % (AUTO) 0.4 % (0.0-8.0); HEMATOCRIT 41.5 % (42-54); LYMPHOCYTES % (AUTO) 5.2 % (21.0-51.0); MEAN CORPUSCULAR HEMOGLOBIN 30.2 pg (27.0-33.0); MEAN CORPUSCULAR HGB CONC 31.1 g/dL (32.0-36.0); MEAN CORPUSCULAR VOLUME 97.2 fL (79-99); MONOCYTES % (AUTO) 1.9 % (3.0-13.0); NEUTROPHILS % (AUTO) 91.4 % (40.0-77.0); PLATELET COUNT (AUTO) 114 K/uL (130-400); RED BLOOD CELL COUNT(AUTO) 4.27 MIL/uL (4.50-6.20); RED CELL DISTRIBUTION WIDTH 13.7 % (11.0-15.5); WHITE BLOOD COUNT (AUTO) 22.3 K/uL (4.8-10.8)
[2020-09-08] MEDS: VANCOMYCIN 1G 1.25 GM in 0.9% NACL 250ML 250 ML IV SCH ×2 (06:21→18:41)
[2020-09-08 06:28] LABS: ALBUMIN 1.9 g/dL (3.5-5.0); BILIRUBIN,TOTAL 0.5 mg/dL (0.2-1.0); CREATININE 0.6 mg/dL (0.5-1.5); CRP QUANTITATIVE 29.2 mg/L (0.00-9.0); POTASSIUM 4.8 mmol/L (3.5-5.1); TOTAL PROTEIN, SERUM 5.3 g/dL (6.0-8.3)
[2020-09-08 07:47] LABS: ERYTHROCYTE SEDIMENTATION RATE 60 MM/HR (0-20)
[2020-09-08] MEDS: ZINC SULFATE 220 CAPSULE PO SCH (08:19)
[2020-09-08] MEDS: PANTOPRAZOLE 40 MG/VIAL IVP SCH (08:19)
[2020-09-08] MEDS: TAMSULOSIN HCL 0.4 MG CAP.ER.24H PO SCH (08:19)
[2020-09-08] MEDS: ENOXAPARIN SODIUM 40 MG/0.4 ML SYRINGE SQ SCH ×2 (08:19→22:14)
[2020-09-08] MEDS: ASCORBIC ACID 500 MG TAB PO SCH (08:19)
[2020-09-08] MEDS: ASPIRIN 81MG CHEW TAB PO SCH (08:19)
[2020-09-08] MEDS: DOCUSATE SODIUM 100 MG CAP PO SCH (08:19)
[2020-09-08] MEDS: METOPROLOL TARTRATE 25 MG TAB PO SCH ×2 (08:19→22:14)
[2020-09-08] MEDS: FUROSEMIDE 40MG VIAL IV SCH (08:20)
[2020-09-08] MEDS: NACL NASAL SPRAY 120 SPRAY/BOTTLE NS SCH ×4 (08:20→22:28)
[2020-09-08] MEDS: INSULIN HUMULIN R 100 UNIT/ML 3ML SQ SCH ×4 (08:23→22:02)
[2020-09-08] MEDS: INSULIN GLARGINE 100 UNITS/ML 10 ML VIAL SQ SCH ×2 (08:28→22:01)
[2020-09-08] MEDS ORDERED: DEXAMETHASONE SOD PHOSPHATE 4 MG/ML 1ML VIAL IV SCH (09:00)
[2020-09-08] MEDS ORDERED: LACTATED RINGERS 1000ML IV SCH (09:15)
[2020-09-08] MEDS ORDERED: LACTATED RINGERS 1000ML 1,000 ML IV SCH (09:30)
[2020-09-08] MEDS: DEXAMETHASONE 10MG/ML 1ML VIAL 6 MG in 0.9%NACL 50ML 50 ML IV SCH (10:26)
[2020-09-08] MEDS: VASOPRESSIN 40 UNITS in 0.9%NACL 50ML 40 ML IV SCH (10:27)
[2020-09-08] MEDS: PHENYLEPHRINE HCL 50 MG in 0.9% NACL 250ML 250 ML IV PRN (10:28)
[2020-09-08] MEDS: CEFTRIAXONE 1G VIAL IVP SCH (12:25)
[2020-09-08] MEDS ORDERED: LACTATED RINGERS 1000ML 1,000 ML IV ONE ×3 (13:25→17:47)
[2020-09-08 14:25] LABS: ABG BASE EXCESS 5.7 mmol/L (-2.0-3.0); ABG HCO3 34.6 mmol/L (21.0-28.0); ABG OXYGEN SATURATION 89.4 % (95.0-99.0); ABG PCO2 69 mmHg (35-48)
[2020-09-08] MEDS: ALBUMIN (HUMAN) 25% 100 ML IV SCH ×2 (14:36→22:12)
[2020-09-08 18:30] LABS: BASOPHILS % (AUTO) 0.2 % (0.0-5.0); EOSINOPHILS % (AUTO) 0.6 % (0.0-8.0); HEMATOCRIT 27.8 % (42-54); LYMPHOCYTES % (AUTO) 4.2 % (21.0-51.0); MEAN CORPUSCULAR HEMOGLOBIN 30.4 pg (27.0-33.0); MEAN CORPUSCULAR HGB CONC 30.6 g/dL (32.0-36.0); MEAN CORPUSCULAR VOLUME 99.3 fL (79-99); MONOCYTES % (AUTO) 2.7 % (3.0-13.0); NUCLEATED RED BLOOD CELLS 0.4 % (0.0-0.19); PLATELET COUNT (AUTO) 88 K/uL (130-400); RED CELL DISTRIBUTION WIDTH 13.5 % (11.0-15.5); WHITE BLOOD COUNT (AUTO) 19.1 K/uL (4.8-10.8)
[2020-09-08] MEDS: MEROPENEM 1 GM VIAL IVP SCH ×2 (18:41→22:14)
[2020-09-08 19:13] LABS: BASOPHILS % (AUTO) 0.2 % (0.0-5.0); EOSINOPHILS % (AUTO) 0.6 % (0.0-8.0); HEMATOCRIT 25.4 % (42-54); LYMPHOCYTES % (AUTO) 3.7 % (21.0-51.0); MEAN CORPUSCULAR HEMOGLOBIN 31.1 pg (27.0-33.0); MEAN CORPUSCULAR HGB CONC 31.5 g/dL (32.0-36.0); MEAN CORPUSCULAR VOLUME 98.8 fL (79-99); MONOCYTES % (AUTO) 2.3 % (3.0-13.0); NEUTROPHILS % (AUTO) 90.9 % (40.0-77.0); NUCLEATED RED BLOOD CELLS 0.4 % (0.0-0.19); PLATELET COUNT (AUTO) 84 K/uL (130-400); RED BLOOD CELL COUNT(AUTO) 2.57 MIL/uL (4.50-6.20); RED CELL DISTRIBUTION WIDTH 13.6 % (11.0-15.5); WHITE BLOOD COUNT (AUTO) 16.8 K/uL (4.8-10.8)
[2020-09-08] MEDS: ATORVASTATIN 10 MG TABLET PO SCH (22:15)
[2020-09-08] MEDS ORDERED: VASOPRESSIN 20 UNITS/ML 1ML VIAL ONE ×2 (23:05→23:06)
[2020-09-09] VITALS (92 sets, daily range): BP systolic 61–141; BP diastolic 33–78
[2020-09-09] MEDS ORDERED: NOREPINEPHRINE BITARTRATE 1 MG/1 ML ML IV ONE ×2 (01:22→08:07)
[2020-09-09] MEDS ORDERED: 0.9% NACL 250ML 250 ML IV ONE (01:23)
[2020-09-09] MEDS ORDERED: PANTOPRAZOLE 40 MG/VIAL IVP SCH (05:00)
[2020-09-09 05:01] LABS: BASOPHILS % (AUTO) 0.2 % (0.0-5.0); EOSINOPHILS % (AUTO) 0.1 % (0.0-8.0); HEMATOCRIT 23.5 % (42-54); LYMPHOCYTES % (AUTO) 8.7 % (21.0-51.0); MEAN CORPUSCULAR HGB CONC 33.2 g/dL (32.0-36.0); MEAN CORPUSCULAR VOLUME 93.3 fL (79-99); MONOCYTES % (AUTO) 2.2 % (3.0-13.0); NUCLEATED RED BLOOD CELLS 1.6 % (0.0-0.19); PLATELET COUNT (AUTO) 88 K/uL (130-400); RED BLOOD CELL COUNT(AUTO) 2.52 MIL/uL (4.50-6.20); WHITE BLOOD COUNT (AUTO) 15.6 K/uL (4.8-10.8)
[2020-09-09] MEDS: PANTOPRAZOLE 40 MG/VIAL IVP SCH (05:15)
[2020-09-09 05:24] LABS: ABG HCO3 36.7 mmol/L (21.0-28.0); ABG OXYGEN SATURATION 86.3 % (95.0-99.0); ABG PCO2 63 mmHg (35-48)
[2020-09-09] MEDS ORDERED: FENTANYL 2500MCG+NS 250ML 250 ML IV ONE (05:41)
[2020-09-09 05:45] LABS: POTASSIUM 5.5 mmol/L (3.5-5.1)
[2020-09-09] MEDS: ALBUMIN (HUMAN) 25% 100 ML IV SCH ×3 (05:45→21:36)
[2020-09-09 05:46] LABS: BILIRUBIN,TOTAL 0.7 mg/dL (0.2-1.0); CREATININE 1.3 mg/dL (0.5-1.5)
[2020-09-09] MEDS: PROPOFOL 1000 MG/100 ML 100 ML IV SCH (05:47)
[2020-09-09 05:49] LABS: ALBUMIN 2.4 g/dL (3.5-5.0); TOTAL PROTEIN, SERUM 4.6 g/dL (6.0-8.3)
[2020-09-09] MEDS: ARTIFICAL TEARS SOL 15 ML OU SCH ×4 (05:51→17:53)
[2020-09-09] MEDS: MEROPENEM 1 GM VIAL IVP SCH ×3 (05:51→21:30)
[2020-09-09] MEDS: PANTOPRAZOLE 40MG INJ 80 MG in 0.9%NACL 100ML 100 ML IVP SCH ×2 (06:00→15:34)
[2020-09-09] MEDS: INSULIN HUMULIN R 100 UNIT/ML 3ML SQ SCH ×4 (07:30→21:00)
[2020-09-09] MEDS ORDERED: PHARMACY COMMUNICATION MISC SCH (08:00)
[2020-09-09 08:04] LABS: INR 1.18 (0.85-1.15); PROTHROMBIN TIME 12.7 SEC (9.6-11.6)
[2020-09-09 08:05] LABS: PARTIAL THROMBOPLASTIN TIME 37.4 SEC (26.3-35.5)
[2020-09-09] MEDS: ASCORBIC ACID 500 MG TAB PO SCH (09:00)
[2020-09-09] MEDS: DOCUSATE SODIUM 100 MG CAP PO SCH (09:00)
[2020-09-09] MEDS: TAMSULOSIN HCL 0.4 MG CAP.ER.24H PO SCH (09:00)
[2020-09-09] MEDS: ZINC SULFATE 220 CAPSULE PO SCH (09:00)
[2020-09-09] MEDS: INSULIN GLARGINE 100 UNITS/ML 10 ML VIAL SQ SCH ×2 (09:00→21:30)
[2020-09-09] MEDS: DEXAMETHASONE 10MG/ML 1ML VIAL 6 MG in 0.9%NACL 50ML 50 ML IV SCH (09:00)
[2020-09-09] MEDS ORDERED: BISACODYL 10 MG SUPP.RECT RC SCH (09:35)
[2020-09-09] MEDS ORDERED: LACTATED RINGERS 1000ML IV SCH (09:35)
[2020-09-09] MEDS ORDERED: NOREPINEPHRINE BITARTRATE 32 MG in 0.9% NACL 250ML 250 ML IV SCH ×2 (09:45→10:00)
[2020-09-09] MEDS ORDERED: NOREPINEPHRINE BITARTRATE 16 MG in 0.9% NACL 250ML 250 ML IV SCH (10:00)
[2020-09-09] MEDS: PANTOPRAZOLE SODIUM 80 MG in NS 100ML IVP SCH ×3 (11:31→21:53)
[2020-09-09] MEDS: NACL NASAL SPRAY 120 SPRAY/BOTTLE NS SCH ×4 (11:32→21:39)
[2020-09-09] MEDS: VANCOMYCIN 1G 1.25 GM in 0.9% NACL 250ML 250 ML IV SCH ×2 (11:56→17:53)
[2020-09-09 12:23] LABS: HEMATOCRIT 24.6 % (42-54)
[2020-09-09 12:54] LABS: ALBUMIN 2.6 g/dL (3.5-5.0); BILIRUBIN,TOTAL 0.7 mg/dL (0.2-1.0); CREATININE 1.4 mg/dL (0.5-1.5); POTASSIUM 5.8 mmol/L (3.5-5.1); TOTAL PROTEIN, SERUM 4.7 g/dL (6.0-8.3)
[2020-09-09 15:20] LABS: BASOPHILS % (AUTO) 0.3 % (0.0-5.0); EOSINOPHILS % (AUTO) 0.9 % (0.0-8.0); HEMATOCRIT 24.7 % (42-54); LYMPHOCYTES % (AUTO) 14.2 % (21.0-51.0); MEAN CORPUSCULAR HEMOGLOBIN 31.1 pg (27.0-33.0); MEAN CORPUSCULAR HGB CONC 33.2 g/dL (32.0-36.0); MEAN CORPUSCULAR VOLUME 93.6 fL (79-99); MONOCYTES % (AUTO) 2.5 % (3.0-13.0); NEUTROPHILS % (AUTO) 79.2 % (40.0-77.0); NUCLEATED RED BLOOD CELLS 5.7 % (0.0-0.19); PLATELET COUNT (AUTO) 82 K/uL (130-400); RED BLOOD CELL COUNT(AUTO) 2.64 MIL/uL (4.50-6.20); RED CELL DISTRIBUTION WIDTH 15.5 % (11.0-15.5)
[2020-09-09] MEDS: MIDAZOLAM 100MG-0.9% NS 100ML 100 ML IV SCH (15:35)
[2020-09-09] MEDS ORDERED: KAYEXALATE 15GM/60ML NG SCH (15:45)
[2020-09-09 15:56] LABS: BAND NEUTROPHILS % (MANUAL) 30 % (0-2); LYMPHOCYTES % (MANUAL) 10 % (22-44); MONOCYTES % (MANUAL) 1 % (2-9); REACTIVE LYMPHOCYTES 9 % (0-0); SEGMENTED NEUTROPHILS % 50 % (40-70)
[2020-09-09 15:57] LABS: MAN.DIFF COMMENT-IMPRESSION MANUAL DIFFERENTIAL
[2020-09-09 20:01] LABS: HEMATOCRIT 19.8 % (42-54)
[2020-09-09] MEDS: ATORVASTATIN 10 MG TABLET PO SCH (21:37)
[2020-09-09] MEDS: VECURONIUM 10MG/10ML 50 MG in 0.9%NACL 50ML 50 ML IV SCH (21:45)
[2020-09-09] MEDS: PHENYLEPHRINE 100 MG/NS 250ML IV SCH ×2 (21:47)
[2020-09-10] VITALS (66 sets, daily range): BP systolic 96–178; BP diastolic 47–100
[2020-09-10] MEDS ORDERED: 0.9%NACL 100ML 100 ML IV ONE (01:03)
[2020-09-10 03:06] LABS: ABG BASE EXCESS 6.8 mmol/L (-2.0-3.0); ABG HCO3 34.5 mmol/L (21.0-28.0); ABG OXYGEN SATURATION 97.7 % (95.0-99.0); ABG PCO2 63 mmHg (35-48)
[2020-09-10] MEDS: ARTIFICAL TEARS SOL 15 ML OU SCH ×4 (06:00→18:00)
[2020-09-10 06:12] LABS: ALBUMIN 2.9 g/dL (3.5-5.0); BILIRUBIN,TOTAL 1.2 mg/dL (0.2-1.0); CREATININE 1.5 mg/dL (0.5-1.5); TOTAL PROTEIN, SERUM 4.9 g/dL (6.0-8.3)
[2020-09-10 06:39] LABS: BASOPHILS % (AUTO) 0.2 % (0.0-5.0); EOSINOPHILS % (AUTO) 1.6 % (0.0-8.0); LYMPHOCYTES % (AUTO) 15.5 % (21.0-51.0); MEAN CORPUSCULAR HEMOGLOBIN 29.7 pg (27.0-33.0); MEAN CORPUSCULAR HGB CONC 32.9 g/dL (32.0-36.0); MEAN CORPUSCULAR VOLUME 90.4 fL (79-99); MONOCYTES % (AUTO) 2.5 % (3.0-13.0); NEUTROPHILS % (AUTO) 76.4 % (40.0-77.0); NUCLEATED RED BLOOD CELLS 4.2 % (0.0-0.19); PLATELET COUNT (AUTO) 67 K/uL (130-400); RED BLOOD CELL COUNT(AUTO) 2.29 MIL/uL (4.50-6.20); RED CELL DISTRIBUTION WIDTH 14.8 % (11.0-15.5); WHITE BLOOD COUNT (AUTO) 8.1 K/uL (4.8-10.8)
[2020-09-10 06:51] LABS: HEMATOCRIT 20.7 % (42-54)
[2020-09-10] MEDS: INSULIN HUMULIN R 100 UNIT/ML 3ML SQ SCH ×4 (07:30→21:00)
[2020-09-10] MEDS: PANTOPRAZOLE 40 MG/VIAL IVP SCH (08:01)
[2020-09-10] MEDS: MEROPENEM 1 GM VIAL IVP SCH ×3 (08:01→20:42)
[2020-09-10] MEDS: ASCORBIC ACID 500 MG TAB PO SCH (08:07)
[2020-09-10] MEDS: ZINC SULFATE 220 CAPSULE PO SCH (08:07)
[2020-09-10] MEDS: DOCUSATE SODIUM 100 MG CAP PO SCH (08:12)
[2020-09-10] MEDS: NACL NASAL SPRAY 120 SPRAY/BOTTLE NS SCH ×4 (08:12→22:16)
[2020-09-10] MEDS: VANCOMYCIN 1G 1.25 GM in 0.9% NACL 250ML 250 ML IV SCH ×2 (08:36→18:19)
[2020-09-10] MEDS: PANTOPRAZOLE SODIUM 80 MG in NS 100ML IVP SCH (08:45)
[2020-09-10] MEDS: VASOPRESSIN 40 UNITS in 0.9%NACL 50ML 40 ML IV SCH (09:07)
[2020-09-10] MEDS: PHENYLEPHRINE 100 MG/NS 250ML IV SCH ×4 (09:20→18:16)
[2020-09-10] MEDS: DEXAMETHASONE 10MG/ML 1ML VIAL 6 MG in 0.9%NACL 50ML 50 ML IV SCH (09:21)
[2020-09-10] MEDS: INSULIN GLARGINE 100 UNITS/ML 10 ML VIAL SQ SCH ×2 (09:37→20:47)
[2020-09-10] MEDS: TAMSULOSIN HCL 0.4 MG CAP.ER.24H PO SCH (09:42)
[2020-09-10] MEDS ORDERED: MIDODRINE HCL 5 MG TABLET PO SCH (09:45)
[2020-09-10] MEDS: ALBUMIN (HUMAN) 25% 100 ML IV SCH ×3 (10:32→20:42)
[2020-09-10] MEDS: MIDODRINE HCL 5 MG TABLET PO SCH ×2 (13:59→20:42)
[2020-09-10 14:25] LABS: ABG BASE EXCESS 7.6 mmol/L (-2.0-3.0); ABG HCO3 33.4 mmol/L (21.0-28.0); ABG OXYGEN SATURATION 77.9 % (95.0-99.0); ABG PCO2 51 mmHg (35-48)
[2020-09-10] MEDS: PROPOFOL 1000 MG/100 ML 100 ML IV SCH (14:26)
[2020-09-10] MEDS ORDERED: FUROSEMIDE 40MG VIAL ONE (14:55)
[2020-09-10 15:15] LABS: ABG BASE EXCESS 6.6 mmol/L (-2.0-3.0); ABG HCO3 32.3 mmol/L (21.0-28.0); ABG OXYGEN SATURATION 81.3 % (95.0-99.0); ABG PCO2 55 mmHg (35-48)
[2020-09-10] MEDS ORDERED: 0.9% NACL 500ML IV.SOLN 500 ML IV ONE (15:22)
[2020-09-10] MEDS: MIDAZOLAM 100MG-0.9% NS 100ML 100 ML IV SCH (15:35)
[2020-09-10] MEDS: VECURONIUM 10MG/10ML 50 MG in 0.9%NACL 50ML 50 ML IV SCH (15:35)
[2020-09-10] MEDS ORDERED: FUROSEMIDE 40MG VIAL IV SCH (16:15)
[2020-09-10] MEDS: ATORVASTATIN 10 MG TABLET PO SCH (22:17)
[2020-09-10 22:21] LABS: BASOPHILS % (AUTO) 0.4 % (0.0-5.0); EOSINOPHILS % (AUTO) 0.4 % (0.0-8.0); HEMATOCRIT 21.3 % (42-54); LYMPHOCYTES % (AUTO) 9.7 % (21.0-51.0); MEAN CORPUSCULAR HEMOGLOBIN 29.9 pg (27.0-33.0); MEAN CORPUSCULAR HGB CONC 32.9 g/dL (32.0-36.0); MONOCYTES % (AUTO) 3.2 % (3.0-13.0); NEUTROPHILS % (AUTO) 82.6 % (40.0-77.0); NUCLEATED RED BLOOD CELLS 9.7 % (0.0-0.19); PLATELET COUNT (AUTO) 61 K/uL (130-400); RED BLOOD CELL COUNT(AUTO) 2.34 MIL/uL (4.50-6.20); RED CELL DISTRIBUTION WIDTH 14.1 % (11.0-15.5); WHITE BLOOD COUNT (AUTO) 7.2 K/uL (4.8-10.8)
[2020-09-11] VITALS (47 sets, daily range): BP systolic 94–179; BP diastolic 67–101
[2020-09-11] MEDS: ARTIFICAL TEARS SOL 15 ML OU SCH ×4 (00:40→17:55)
[2020-09-11] MEDS: PHENYLEPHRINE 100 MG/NS 250ML IV SCH ×4 (02:02→13:30)
[2020-09-11] MEDS: VECURONIUM 10MG/10ML 50 MG in 0.9%NACL 50ML 50 ML IV SCH ×3 (02:03→19:43)
[2020-09-11 05:05] LABS: BASOPHILS % (AUTO) 0.9 % (0.0-5.0); EOSINOPHILS % (AUTO) 0.2 % (0.0-8.0); HEMATOCRIT 25.9 % (42-54); LYMPHOCYTES % (AUTO) 10.6 % (21.0-51.0); MEAN CORPUSCULAR HEMOGLOBIN 30.8 pg (27.0-33.0); MEAN CORPUSCULAR HGB CONC 34.4 g/dL (32.0-36.0); MEAN CORPUSCULAR VOLUME 89.6 fL (79-99); MONOCYTES % (AUTO) 3.1 % (3.0-13.0); NEUTROPHILS % (AUTO) 79.2 % (40.0-77.0); NUCLEATED RED BLOOD CELLS 13.7 % (0.0-0.19); PLATELET COUNT (AUTO) 51 K/uL (130-400); RED BLOOD CELL COUNT(AUTO) 2.89 MIL/uL (4.50-6.20); RED CELL DISTRIBUTION WIDTH 13.6 % (11.0-15.5)
[2020-09-11 05:27] LABS: % IRON SATURATION 121.6 % (30-44)
[2020-09-11 05:44] LABS: ALBUMIN 3.6 g/dL (3.5-5.0); BILIRUBIN,TOTAL 1.9 mg/dL (0.2-1.0); POTASSIUM 4.5 mmol/L (3.5-5.1); TOTAL PROTEIN, SERUM 5.6 g/dL (6.0-8.3); TROPONIN I 0.31 ng/mL (0.00-0.06)
[2020-09-11] MEDS ORDERED: FENTANYL 2500MCG+NS 250ML 250 ML IV ONE (06:52)
[2020-09-11] MEDS: ALBUMIN (HUMAN) 25% 100 ML IV SCH ×3 (06:53→21:20)
[2020-09-11] MEDS: MEROPENEM 1 GM VIAL IVP SCH ×3 (06:53→20:53)
[2020-09-11 07:06] LABS: ABG BASE EXCESS 7.8 mmol/L (-2.0-3.0); ABG HCO3 32.7 mmol/L (21.0-28.0); ABG OXYGEN SATURATION 87.5 % (95.0-99.0); ABG PCO2 46 mmHg (35-48)
[2020-09-11] MEDS: VANCOMYCIN 1G 1.25 GM in 0.9% NACL 250ML 250 ML IV SCH ×2 (07:10→17:56)
[2020-09-11] MEDS: PANTOPRAZOLE 40 MG/VIAL IVP SCH (07:19)
[2020-09-11] MEDS: INSULIN HUMULIN R 100 UNIT/ML 3ML SQ SCH ×4 (07:30→21:00)
[2020-09-11] MEDS: NACL NASAL SPRAY 120 SPRAY/BOTTLE NS SCH ×4 (08:38→20:46)
[2020-09-11] MEDS: TAMSULOSIN HCL 0.4 MG CAP.ER.24H PO SCH (08:38)
[2020-09-11] MEDS: ZINC SULFATE 220 CAPSULE PO SCH (08:38)
[2020-09-11] MEDS: ASCORBIC ACID 500 MG TAB PO SCH (08:38)
[2020-09-11] MEDS: MIDODRINE HCL 5 MG TABLET PO SCH ×3 (08:38→20:46)
[2020-09-11] MEDS: DOCUSATE SODIUM 100 MG CAP PO SCH (08:39)
[2020-09-11] MEDS: DEXAMETHASONE 10MG/ML 1ML VIAL 6 MG in 0.9%NACL 50ML 50 ML IV SCH (08:40)
[2020-09-11] MEDS: INSULIN GLARGINE 100 UNITS/ML 10 ML VIAL SQ SCH ×2 (08:49→21:00)
[2020-09-11] MEDS: MIDAZOLAM 100MG-0.9% NS 100ML 100 ML IV SCH (13:29)
[2020-09-11 14:22] LABS: HEMATOCRIT 24.2 % (42-54)
[2020-09-11] MEDS: PANTOPRAZOLE SODIUM 80 MG in NS 100ML IVP SCH (19:22)
[2020-09-11] MEDS: ATORVASTATIN 10 MG TABLET PO SCH (20:46)
[2020-09-11] MEDS: PROPOFOL 1000 MG/100 ML 100 ML IV SCH (21:22)
[2020-09-12] VITALS (33 sets, daily range): BP systolic 107–142; BP diastolic 69–88
[2020-09-12] MEDS: ARTIFICAL TEARS SOL 15 ML OU SCH ×4 (00:45→18:00)
[2020-09-12] MEDS: PHENYLEPHRINE 100 MG/NS 250ML IV SCH ×4 (03:40→19:43)
[2020-09-12 04:41] LABS: ABG BASE EXCESS 7.5 mmol/L (-2.0-3.0); ABG OXYGEN SATURATION 77.1 % (95.0-99.0); ABG PCO2 68 mmHg (35-48)
[2020-09-12] MEDS: PANTOPRAZOLE 40 MG/VIAL IVP SCH (05:35)
[2020-09-12] MEDS: ALBUMIN (HUMAN) 25% 100 ML IV SCH ×3 (05:35→21:20)
[2020-09-12] MEDS: MEROPENEM 1 GM VIAL IVP SCH ×3 (05:35→21:20)
[2020-09-12] MEDS: VANCOMYCIN 1G 1.25 GM in 0.9% NACL 250ML 250 ML IV SCH ×2 (05:36→18:17)
[2020-09-12 05:51] LABS: BASOPHILS % (AUTO) 0.8 % (0.0-5.0); EOSINOPHILS % (AUTO) 0.7 % (0.0-8.0); HEMATOCRIT 24.6 % (42-54); LYMPHOCYTES % (AUTO) 7.1 % (21.0-51.0); MEAN CORPUSCULAR HEMOGLOBIN 30.9 pg (27.0-33.0); MEAN CORPUSCULAR HGB CONC 32.5 g/dL (32.0-36.0); MONOCYTES % (AUTO) 3.6 % (3.0-13.0); NEUTROPHILS % (AUTO) 79.9 % (40.0-77.0); NUCLEATED RED BLOOD CELLS 23.8 % (0.0-0.19); PLATELET COUNT (AUTO) 57 K/uL (130-400); RED BLOOD CELL COUNT(AUTO) 2.59 MIL/uL (4.50-6.20); RED CELL DISTRIBUTION WIDTH 14.8 % (11.0-15.5); WHITE BLOOD COUNT (AUTO) 11.8 K/uL (4.8-10.8)
[2020-09-12] MEDS ORDERED: 0.9%NACL 100ML 100 ML IV ONE (06:07)
[2020-09-12 06:14] LABS: ALBUMIN 3.9 g/dL (3.5-5.0); BILIRUBIN,TOTAL 1.9 mg/dL (0.2-1.0); CREATININE 0.8 mg/dL (0.5-1.5); CRP QUANTITATIVE 123.8 mg/L (0.00-9.0); POTASSIUM 4.9 mmol/L (3.5-5.1); TOTAL PROTEIN, SERUM 5.9 g/dL (6.0-8.3)
[2020-09-12] MEDS: INSULIN HUMULIN R 100 UNIT/ML 3ML SQ SCH ×4 (06:45→21:00)
[2020-09-12 07:15] LABS: BAND NEUTROPHILS % (MANUAL) 3 % (0-2); LYMPHOCYTES % (MANUAL) 9 % (22-44); MAN.DIFF COMMENT-IMPRESSION MANUAL DIFFERENTIAL; MONOCYTES % (MANUAL) 3 % (2-9); SEGMENTED NEUTROPHILS % 85 % (40-70)
[2020-09-12 07:16] LABS: PLATELET MORPHOLOGY COMMENT DECREASED
[2020-09-12] MEDS: NACL NASAL SPRAY 120 SPRAY/BOTTLE NS SCH ×4 (08:26→21:32)
[2020-09-12] MEDS: ASCORBIC ACID 500 MG TAB PO SCH (08:31)
[2020-09-12] MEDS: ZINC SULFATE 220 CAPSULE PO SCH (08:31)
[2020-09-12] MEDS: TAMSULOSIN HCL 0.4 MG CAP.ER.24H PO SCH (08:31)
[2020-09-12] MEDS: MIDODRINE HCL 5 MG TABLET PO SCH ×3 (08:31→21:20)
[2020-09-12] MEDS: DOCUSATE SODIUM 100 MG CAP PO SCH (08:33)
[2020-09-12] MEDS: DEXAMETHASONE SOD PHOSPHATE 4 MG/ML 1ML VIAL IVP SCH (08:35)
[2020-09-12] MEDS ORDERED: PHARMACY COMMUNICATION MISC SCH (11:45)
[2020-09-12] MEDS ORDERED: FUROSEMIDE 40MG VIAL IV SCH (11:45)
[2020-09-12] MEDS: MIDAZOLAM 100MG-0.9% NS 100ML 100 ML IV SCH (11:52)
[2020-09-12] MEDS ORDERED: FUROSEMIDE 100 MG/NS 100ML IV SCH ×2 (12:00)
[2020-09-12 16:38] LABS: CREATININE 0.9 mg/dL (0.5-1.5); POTASSIUM 5.3 mmol/L (3.5-5.1)
[2020-09-12] MEDS: PANTOPRAZOLE SODIUM 80 MG in NS 100ML IVP SCH (16:43)
[2020-09-12] MEDS: KAYEXALATE 15GM/60ML NG SCH (18:17)
[2020-09-12] MEDS: ATORVASTATIN 10 MG TABLET PO SCH (21:20)
[2020-09-13] VITALS (30 sets, daily range): BP systolic 106–132; BP diastolic 67–83
[2020-09-13] MEDS: ARTIFICAL TEARS SOL 15 ML OU SCH ×4 (01:13→17:50)
[2020-09-13] MEDS: PANTOPRAZOLE SODIUM 80 MG in NS 100ML IVP SCH ×2 (02:02→15:32)
[2020-09-13] MEDS: VECURONIUM 10MG/10ML 50 MG in 0.9%NACL 50ML 50 ML IV SCH ×2 (02:03→13:59)
[2020-09-13] MEDS: PANTOPRAZOLE 40 MG/VIAL IVP SCH (04:40)
[2020-09-13 04:43] LABS: HEMATOCRIT 24.4 % (42-54); MEAN CORPUSCULAR HEMOGLOBIN 30.3 pg (27.0-33.0); MEAN CORPUSCULAR HGB CONC 30.3 g/dL (32.0-36.0); NUCLEATED RED BLOOD CELLS 27.5 % (0.0-0.19); RED BLOOD CELL COUNT(AUTO) 2.44 MIL/uL (4.50-6.20); RED CELL DISTRIBUTION WIDTH 15.6 % (11.0-15.5); WHITE BLOOD COUNT (AUTO) 13.4 K/uL (4.8-10.8)
[2020-09-13] MEDS: MEROPENEM 1 GM VIAL IVP SCH ×3 (04:54→21:08)
[2020-09-13 05:04] LABS: ALBUMIN 4.5 g/dL (3.5-5.0); BILIRUBIN,TOTAL 2.7 mg/dL (0.2-1.0); CREATININE 0.7 mg/dL (0.5-1.5); CRP QUANTITATIVE 90.1 mg/L (0.00-9.0); POTASSIUM 4.6 mmol/L (3.5-5.1); TOTAL PROTEIN, SERUM 6.4 g/dL (6.0-8.3)
[2020-09-13] MEDS: VANCOMYCIN 1G 1.25 GM in 0.9% NACL 250ML 250 ML IV SCH ×2 (05:05→17:49)
[2020-09-13] MEDS: ALBUMIN (HUMAN) 25% 100 ML IV SCH ×3 (05:09→21:13)
[2020-09-13] MEDS: INSULIN HUMULIN R 100 UNIT/ML 3ML SQ SCH ×4 (05:10→19:51)
[2020-09-13 06:51] LABS: ABG BASE EXCESS 10.8 mmol/L (-2.0-3.0); ABG HCO3 41.1 mmol/L (21.0-28.0); ABG PCO2 83 mmHg (35-48)
[2020-09-13] MEDS: TAMSULOSIN HCL 0.4 MG CAP.ER.24H PO SCH (07:48)
[2020-09-13] MEDS: ZINC SULFATE 220 CAPSULE PO SCH (07:48)
[2020-09-13] MEDS: MIDODRINE HCL 5 MG TABLET PO SCH ×3 (07:48→20:15)
[2020-09-13] MEDS: ASCORBIC ACID 500 MG TAB PO SCH (07:49)
[2020-09-13] MEDS: DEXAMETHASONE SOD PHOSPHATE 4 MG/ML 1ML VIAL IVP SCH (07:49)
[2020-09-13] MEDS: NACL NASAL SPRAY 120 SPRAY/BOTTLE NS SCH ×4 (07:51→20:17)
[2020-09-13] MEDS: DOCUSATE SODIUM 100 MG CAP PO SCH (07:51)
[2020-09-13] MEDS ORDERED: FENTANYL 2500MCG+NS 250ML 250 ML IV ONE (11:24)
[2020-09-13] MEDS: MIDAZOLAM 100MG-0.9% NS 100ML 100 ML IV SCH (11:32)
[2020-09-13] MEDS: PHENYLEPHRINE 100 MG/NS 250ML IV SCH ×2 (12:17)
[2020-09-13] MEDS: KAYEXALATE 15GM/60ML NG SCH (17:49)
[2020-09-13] MEDS: ATORVASTATIN 10 MG TABLET PO SCH (20:16)
[2020-09-14] VITALS (31 sets, daily range): BP systolic 113–172; BP diastolic 67–101
[2020-09-14] MEDS: ARTIFICAL TEARS SOL 15 ML OU SCH ×3 (01:13→12:00)
[2020-09-14] MEDS: PANTOPRAZOLE SODIUM 80 MG in NS 100ML IVP SCH ×2 (01:43→11:15)
[2020-09-14 04:26] LABS: BASOPHILS % (AUTO) 0.1 % (0.0-5.0); EOSINOPHILS % (AUTO) 0.3 % (0.0-8.0); HEMATOCRIT 24.7 % (42-54); MEAN CORPUSCULAR VOLUME 103.3 fL (79-99); MONOCYTES % (AUTO) 2.4 % (3.0-13.0); NEUTROPHILS % (AUTO) 82.6 % (40.0-77.0); NUCLEATED RED BLOOD CELLS 37.3 % (0.0-0.19); PLATELET COUNT (AUTO) 66 K/uL (130-400); RED BLOOD CELL COUNT(AUTO) 2.39 MIL/uL (4.50-6.20); RED CELL DISTRIBUTION WIDTH 15.8 % (11.0-15.5); WHITE BLOOD COUNT (AUTO) 13.3 K/uL (4.8-10.8)
[2020-09-14 04:32] LABS: INR 1.2 (0.85-1.15); PROTHROMBIN TIME 12.9 SEC (9.6-11.6)
[2020-09-14 04:36] LABS: ALBUMIN 4.5 g/dL (3.5-5.0); BILIRUBIN,TOTAL 3.1 mg/dL (0.2-1.0); CREATININE 0.6 mg/dL (0.5-1.5); POTASSIUM 4.3 mmol/L (3.5-5.1); TOTAL PROTEIN, SERUM 5.9 g/dL (6.0-8.3)
[2020-09-14] MEDS: PANTOPRAZOLE 40 MG/VIAL IVP SCH (05:10)
[2020-09-14] MEDS: VANCOMYCIN 1G 1.25 GM in 0.9% NACL 250ML 250 ML IV SCH (05:11)
[2020-09-14] MEDS: MIDAZOLAM 100MG-0.9% NS 100ML 100 ML IV SCH (05:13)
[2020-09-14] MEDS: MEROPENEM 1 GM VIAL IVP SCH ×2 (05:17→13:12)
[2020-09-14] MEDS: ALBUMIN (HUMAN) 25% 100 ML IV SCH ×3 (05:17→23:38)
[2020-09-14] MEDS: INSULIN HUMULIN R 100 UNIT/ML 3ML SQ SCH ×3 (05:42→21:00)
[2020-09-14 07:21] LABS: ABG BASE EXCESS 15.7 mmol/L (-2.0-3.0); ABG HCO3 47.7 mmol/L (21.0-28.0); ABG OXYGEN SATURATION 78.2 % (95.0-99.0); ABG PCO2 100 mmHg (35-48)
[2020-09-14] MEDS: VECURONIUM 10MG/10ML 50 MG in 0.9%NACL 50ML 50 ML IV SCH (08:04)
[2020-09-14] MEDS: DOCUSATE SODIUM 100 MG CAP PO SCH (09:00)
[2020-09-14] MEDS: NACL NASAL SPRAY 120 SPRAY/BOTTLE NS SCH ×3 (09:32→21:00)
[2020-09-14] MEDS: DEXAMETHASONE SOD PHOSPHATE 4 MG/ML 1ML VIAL IVP SCH (09:37)
[2020-09-14] MEDS: ZINC SULFATE 220 CAPSULE PO SCH (09:37)
[2020-09-14] MEDS: ASCORBIC ACID 500 MG TAB PO SCH (09:37)
[2020-09-14] MEDS: MIDODRINE HCL 5 MG TABLET PO SCH ×2 (09:37→13:12)
[2020-09-14] MEDS: TAMSULOSIN HCL 0.4 MG CAP.ER.24H PO SCH (09:37)
[2020-09-14] MEDS: DEXTROSE 5%-WATER 1,000 ML IV SCH (09:39)
[2020-09-14] MEDS: TRYPSIN/BALSAM PERU/CASTOR OIL OINT 60GM TUBE TP SCH (09:39)
[2020-09-14] MEDS: PHENYLEPHRINE 100 MG/NS 250ML IV SCH ×2 (11:26)
[2020-09-14] MEDS: PROPOFOL 1000 MG/100 ML 100 ML IV SCH (11:36)
[2020-09-14 12:06] LABS: ABG BASE EXCESS 14.1 mmol/L (-2.0-3.0); ABG HCO3 44.9 mmol/L (21.0-28.0); ABG PCO2 89 mmHg (35-48)
[2020-09-15] VITALS (29 sets, daily range): BP systolic 101–166; BP diastolic 57–100
[2020-09-15] MEDS: ARTIFICAL TEARS SOL 15 ML OU SCH ×5 (00:08→17:08)
[2020-09-15] MEDS: ATORVASTATIN 10 MG TABLET PO SCH ×2 (00:09→20:56)
[2020-09-15] MEDS: MIDODRINE HCL 5 MG TABLET PO SCH ×4 (00:09→20:56)
[2020-09-15] MEDS: MEROPENEM 1 GM VIAL IVP SCH ×4 (00:09→20:56)
[2020-09-15 05:05] LABS: BASOPHILS % (AUTO) 0.7 % (0.0-5.0); EOSINOPHILS % (AUTO) 0.2 % (0.0-8.0); HEMATOCRIT 26.2 % (42-54); LYMPHOCYTES % (AUTO) 1.1 % (21.0-51.0); MEAN CORPUSCULAR HEMOGLOBIN 30.7 pg (27.0-33.0); MEAN CORPUSCULAR HGB CONC 30.2 g/dL (32.0-36.0); MEAN CORPUSCULAR VOLUME 101.9 fL (79-99); MONOCYTES % (AUTO) 2.6 % (3.0-13.0); NUCLEATED RED BLOOD CELLS 35.1 % (0.0-0.19); PLATELET COUNT (AUTO) 84 K/uL (130-400); RED BLOOD CELL COUNT(AUTO) 2.57 MIL/uL (4.50-6.20); WHITE BLOOD COUNT (AUTO) 14.1 K/uL (4.8-10.8)
[2020-09-15 05:14] LABS: ALBUMIN 4.7 g/dL (3.5-5.0); BILIRUBIN,TOTAL 3.9 mg/dL (0.2-1.0); CREATININE 0.7 mg/dL (0.5-1.5); CRP QUANTITATIVE 30.4 mg/L (0.00-9.0); TOTAL PROTEIN, SERUM 5.9 g/dL (6.0-8.3)
[2020-09-15] MEDS: ALBUMIN (HUMAN) 25% 100 ML IV SCH ×3 (05:33→21:15)
[2020-09-15] MEDS: VANCOMYCIN 1G 1.25 GM in 0.9% NACL 250ML 250 ML IV SCH ×2 (05:34→17:06)
[2020-09-15] MEDS: MIDAZOLAM 100MG-0.9% NS 100ML 100 ML IV SCH ×2 (06:04→22:18)
[2020-09-15] MEDS: PANTOPRAZOLE SODIUM 80 MG in NS 100ML IVP SCH ×3 (06:06→22:12)
[2020-09-15] MEDS: POTASSIUM CHLORIDE 20MEQ/100ML 100 ML IV PRN ×3 (06:42→19:34)
[2020-09-15 07:27] LABS: ABG BASE EXCESS 10.9 mmol/L (-2.0-3.0); ABG HCO3 39.6 mmol/L (21.0-28.0); ABG OXYGEN SATURATION 85.4 % (95.0-99.0); ABG PCO2 71 mmHg (35-48)
[2020-09-15] MEDS ORDERED: INSULIN GLARGINE 100 UNITS/ML 10 ML VIAL SQ SCH (09:00)
[2020-09-15] MEDS: DOCUSATE SODIUM 100 MG CAP PO SCH (09:00)
[2020-09-15] MEDS: ZINC SULFATE 220 CAPSULE PO SCH (10:30)
[2020-09-15] MEDS: DEXAMETHASONE SOD PHOSPHATE 4 MG/ML 1ML VIAL IVP SCH (10:30)
[2020-09-15] MEDS: ASCORBIC ACID 500 MG TAB PO SCH (10:30)
[2020-09-15] MEDS: NACL NASAL SPRAY 120 SPRAY/BOTTLE NS SCH ×4 (10:31→21:00)
[2020-09-15] MEDS: TRYPSIN/BALSAM PERU/CASTOR OIL OINT 60GM TUBE TP SCH (10:31)
[2020-09-15] MEDS: TAMSULOSIN HCL 0.4 MG CAP.ER.24H PO SCH (10:38)
[2020-09-15] MEDS: INSULIN HUMULIN R 100 UNIT/ML 3ML SQ SCH ×4 (10:44→21:00)
[2020-09-15 16:32] LABS: CREATININE 0.6 mg/dL (0.5-1.5)
[2020-09-15 16:37] LABS: POTASSIUM 2.8 mmol/L (3.5-5.1)
[2020-09-15] MEDS: PROPOFOL 1000 MG/100 ML 100 ML IV SCH (16:40)
[2020-09-15] MEDS: INSULIN GLARGINE 100 UNITS/ML 10 ML VIAL SQ SCH (21:00)
[2020-09-15] MEDS ORDERED: FENTANYL 2500MCG+NS 250ML 250 ML IV ONE (21:32)
[2020-09-15] MEDS: VECURONIUM 10MG/10ML 50 MG in 0.9%NACL 50ML 50 ML IV SCH (22:15)
[2020-09-15] MEDS ORDERED: NOREPINEPHRIN 4MG/NS 250ML 250 ML IV ONE (22:36)
[2020-09-16] VITALS (51 sets, daily range): BP systolic 103–142; BP diastolic 59–83
[2020-09-16 05:03] LABS: BASOPHILS % (AUTO) 0.4 % (0.0-5.0); EOSINOPHILS % (AUTO) 0.2 % (0.0-8.0); HEMATOCRIT 26.6 % (42-54); LYMPHOCYTES % (AUTO) 1.5 % (21.0-51.0); MEAN CORPUSCULAR HEMOGLOBIN 30.4 pg (27.0-33.0); MEAN CORPUSCULAR HGB CONC 30.1 g/dL (32.0-36.0); MEAN CORPUSCULAR VOLUME 101.1 fL (79-99); MONOCYTES % (AUTO) 2.1 % (3.0-13.0); NEUTROPHILS % (AUTO) 88.3 % (40.0-77.0); NUCLEATED RED BLOOD CELLS 18.6 % (0.0-0.19); PLATELET COUNT (AUTO) 81 K/uL (130-400); RED BLOOD CELL COUNT(AUTO) 2.63 MIL/uL (4.50-6.20); RED CELL DISTRIBUTION WIDTH 16.6 % (11.0-15.5)
[2020-09-16] MEDS: VANCOMYCIN 1G 1.25 GM in 0.9% NACL 250ML 250 ML IV SCH (05:25)
[2020-09-16 05:26] LABS: CREATININE 0.5 mg/dL (0.5-1.5); TOTAL PROTEIN, SERUM 5.3 g/dL (6.0-8.3)
[2020-09-16] MEDS: MEROPENEM 1 GM VIAL IVP SCH ×3 (05:26→21:18)
[2020-09-16] MEDS: ALBUMIN (HUMAN) 25% 100 ML IV SCH ×3 (05:26→20:45)
[2020-09-16] MEDS: ARTIFICAL TEARS SOL 15 ML OU SCH ×4 (05:27→17:38)
[2020-09-16 05:30] LABS: POTASSIUM 2.9 mmol/L (3.5-5.1)
[2020-09-16 05:31] LABS: ABG BASE EXCESS 13.6 mmol/L (-2.0-3.0); ABG HCO3 40.9 mmol/L (21.0-28.0); ABG OXYGEN SATURATION 73.8 % (95.0-99.0); ABG PCO2 62 mmHg (35-48)
[2020-09-16] MEDS: POTASSIUM CHLORIDE 20MEQ/100ML 100 ML IV PRN (05:54)
[2020-09-16] MEDS: INSULIN HUMULIN R 100 UNIT/ML 3ML SQ SCH ×4 (07:30→21:16)
[2020-09-16] MEDS ORDERED: POTASSIUM CHLORIDE 10% ELIXIR 20 MEQ/15 ML UDCUP NG SCH (08:15)
[2020-09-16] MEDS: ASCORBIC ACID 500 MG TAB PO SCH (10:08)
[2020-09-16] MEDS: DOCUSATE SODIUM 100 MG CAP PO SCH (10:09)
[2020-09-16] MEDS: TAMSULOSIN HCL 0.4 MG CAP.ER.24H PO SCH (10:09)
[2020-09-16] MEDS: ZINC SULFATE 220 CAPSULE PO SCH (10:09)
[2020-09-16] MEDS: MIDODRINE HCL 5 MG TABLET PO SCH ×3 (10:09→20:49)
[2020-09-16] MEDS: DEXAMETHASONE SOD PHOSPHATE 4 MG/ML 1ML VIAL IVP SCH (10:10)
[2020-09-16] MEDS: TRYPSIN/BALSAM PERU/CASTOR OIL OINT 60GM TUBE TP SCH (10:13)
[2020-09-16] MEDS: NACL NASAL SPRAY 120 SPRAY/BOTTLE NS SCH ×4 (10:14→20:45)
[2020-09-16] MEDS ORDERED: POTASSIUM CHLORIDE 10MEQ/100ML 10 MEQ/100 ML ML IV SCH (13:00)
[2020-09-16] MEDS ORDERED: POTASSIUM CHLORIDE 20MEQ/100ML 100 ML IV SCH (13:15)
[2020-09-16 15:52] LABS: CREATININE 1.4 mg/dL (0.5-1.5); POTASSIUM 3.7 mmol/L (3.5-5.1)
[2020-09-16] MEDS: ATORVASTATIN 10 MG TABLET PO SCH (20:44)
[2020-09-16] MEDS ORDERED: PANTOPRAZOLE 40 MG/VIAL IVP SCH (21:00)
[2020-09-16] MEDS: VECURONIUM 10MG/10ML 50 MG in 0.9%NACL 50ML 50 ML IV SCH (21:05)
[2020-09-16] MEDS: PROPOFOL 1000 MG/100 ML 100 ML IV SCH (21:10)
[2020-09-16] MEDS: INSULIN GLARGINE 100 UNITS/ML 10 ML VIAL SQ SCH (21:15)
[2020-09-17] VITALS (59 sets, daily range): BP systolic 93–148; BP diastolic 58–98
[2020-09-17 04:55] LABS: BASOPHILS % (AUTO) 0.5 % (0.0-5.0); HEMATOCRIT 30.8 % (42-54); LYMPHOCYTES % (AUTO) 2.2 % (21.0-51.0); MEAN CORPUSCULAR HEMOGLOBIN 30.4 pg (27.0-33.0); MEAN CORPUSCULAR HGB CONC 30.2 g/dL (32.0-36.0); MEAN CORPUSCULAR VOLUME 100.7 fL (79-99); MONOCYTES % (AUTO) 1.6 % (3.0-13.0); NEUTROPHILS % (AUTO) 90.4 % (40.0-77.0); NUCLEATED RED BLOOD CELLS 10.9 % (0.0-0.19); PLATELET COUNT (AUTO) 88 K/uL (130-400); RED BLOOD CELL COUNT(AUTO) 3.06 MIL/uL (4.50-6.20); RED CELL DISTRIBUTION WIDTH 17.5 % (11.0-15.5); WHITE BLOOD COUNT (AUTO) 11.6 K/uL (4.8-10.8)
[2020-09-17 05:17] LABS: CREATININE 0.5 mg/dL (0.5-1.5); MAGNESIUM 2.7 mg/dL (1.80-2.40); POTASSIUM 3.8 mmol/L (3.5-5.1)
[2020-09-17 05:30] LABS: ABG BASE EXCESS 12.4 mmol/L (-2.0-3.0); ABG HCO3 41.1 mmol/L (21.0-28.0); ABG OXYGEN SATURATION 75.4 % (95.0-99.0); ABG PCO2 71 mmHg (35-48)
[2020-09-17] MEDS: ARTIFICAL TEARS SOL 15 ML OU SCH ×5 (05:54→23:32)
[2020-09-17] MEDS: ALBUMIN (HUMAN) 25% 100 ML IV SCH (06:31)
[2020-09-17] MEDS: MEROPENEM 1 GM VIAL IVP SCH ×3 (06:31→22:27)
[2020-09-17] MEDS: DOCUSATE SODIUM 100 MG CAP PO SCH (08:20)
[2020-09-17] MEDS: ASCORBIC ACID 500 MG TAB PO SCH (08:20)
[2020-09-17] MEDS: TAMSULOSIN HCL 0.4 MG CAP.ER.24H PO SCH (08:20)
[2020-09-17] MEDS: MIDODRINE HCL 5 MG TABLET PO SCH ×3 (08:20→20:31)
[2020-09-17] MEDS: ZINC SULFATE 220 CAPSULE PO SCH (08:20)
[2020-09-17] MEDS: VANCOMYCIN 1G/250ML KIT 250 ML IV SCH ×2 (08:21→20:31)
[2020-09-17] MEDS: DEXAMETHASONE SOD PHOSPHATE 4 MG/ML 1ML VIAL IVP SCH (08:21)
[2020-09-17] MEDS: TRYPSIN/BALSAM PERU/CASTOR OIL OINT 60GM TUBE TP SCH (08:22)
[2020-09-17] MEDS: NACL NASAL SPRAY 120 SPRAY/BOTTLE NS SCH ×4 (08:22→21:00)
[2020-09-17] MEDS: INSULIN HUMULIN R 100 UNIT/ML 3ML SQ SCH ×4 (08:25→23:27)
[2020-09-17] MEDS: PANTOPRAZOLE 40 MG TAB DR PO SCH ×2 (09:32→20:32)
[2020-09-17] MEDS ORDERED: FUROSEMIDE 20MG VIAL IV SCH (13:45)
[2020-09-17] MEDS: VECURONIUM 10MG/10ML 50 MG in 0.9%NACL 50ML 50 ML IV SCH (14:15)
[2020-09-17] MEDS: PROPOFOL 1000 MG/100 ML 100 ML IV SCH (18:27)
[2020-09-17] MEDS: ATORVASTATIN 10 MG TABLET PO SCH (20:32)
[2020-09-17] MEDS: INSULIN GLARGINE 100 UNITS/ML 10 ML VIAL SQ SCH (23:30)
[2020-09-18] VITALS (45 sets, daily range): BP systolic 82–142; BP diastolic 47–92
[2020-09-18] MEDS ORDERED: FENTANYL 2500MCG+NS 250ML 250 ML IV ONE (03:06)
[2020-09-18] MEDS: ARTIFICAL TEARS SOL 15 ML OU SCH ×3 (05:03→17:13)
[2020-09-18 05:08] LABS: ABG BASE EXCESS 13.4 mmol/L (-2.0-3.0); ABG HCO3 47.5 mmol/L (21.0-28.0); ABG OXYGEN SATURATION 86.9 % (95.0-99.0); ABG PCO2 123 mmHg (35-48)
[2020-09-18] MEDS: MEROPENEM 1 GM VIAL IVP SCH ×3 (05:08→20:50)
[2020-09-18] MEDS: INSULIN HUMULIN R 100 UNIT/ML 3ML SQ SCH ×4 (05:29→20:56)
[2020-09-18 05:51] LABS: BASOPHILS % (AUTO) 0.7 % (0.0-5.0); EOSINOPHILS % (AUTO) 0.1 % (0.0-8.0); HEMATOCRIT 34.8 % (42-54); LYMPHOCYTES % (AUTO) 0.6 % (21.0-51.0); MEAN CORPUSCULAR HEMOGLOBIN 30.9 pg (27.0-33.0); MEAN CORPUSCULAR HGB CONC 28.4 g/dL (32.0-36.0); MEAN CORPUSCULAR VOLUME 108.8 fL (79-99); MONOCYTES % (AUTO) 3.2 % (3.0-13.0); NEUTROPHILS % (AUTO) 91.1 % (40.0-77.0); NUCLEATED RED BLOOD CELLS 14.6 % (0.0-0.19); PLATELET COUNT (AUTO) 92 K/uL (130-400); RED CELL DISTRIBUTION WIDTH 18.6 % (11.0-15.5); WHITE BLOOD COUNT (AUTO) 13.6 K/uL (4.8-10.8)
[2020-09-18 05:55] LABS: ALBUMIN 4.6 g/dL (3.5-5.0); BILIRUBIN,TOTAL 3.9 mg/dL (0.2-1.0); CREATININE 0.5 mg/dL (0.5-1.5); CRP QUANTITATIVE 15.1 mg/L (0.00-9.0); POTASSIUM 4.8 mmol/L (3.5-5.1)
[2020-09-18 06:58] LABS: BAND NEUTROPHILS % (MANUAL) 3 % (0-2); LYMPHOCYTES % (MANUAL) 2 % (22-44); MONOCYTES % (MANUAL) 1 % (2-9); SEGMENTED NEUTROPHILS % 94 % (40-70)
[2020-09-18 06:59] LABS: MAN.DIFF COMMENT-IMPRESSION MANUAL DIFFERENTIAL; PLATELET MORPHOLOGY COMMENT DECREASED
[2020-09-18] MEDS: DOCUSATE SODIUM 100 MG CAP PO SCH (08:05)
[2020-09-18] MEDS: ASCORBIC ACID 500 MG TAB PO SCH (08:05)
[2020-09-18] MEDS: ZINC SULFATE 220 CAPSULE PO SCH (08:05)
[2020-09-18] MEDS: PANTOPRAZOLE 40 MG TAB DR PO SCH ×2 (08:05→20:50)
[2020-09-18] MEDS: MIDODRINE HCL 5 MG TABLET PO SCH ×3 (08:05→20:50)
[2020-09-18] MEDS: VANCOMYCIN 1G/250ML KIT 250 ML IV SCH ×2 (08:06→20:48)
[2020-09-18] MEDS: DEXAMETHASONE SOD PHOSPHATE 4 MG/ML 1ML VIAL IVP SCH (08:06)
[2020-09-18] MEDS: TRYPSIN/BALSAM PERU/CASTOR OIL OINT 60GM TUBE TP SCH (08:07)
[2020-09-18] MEDS: NACL NASAL SPRAY 120 SPRAY/BOTTLE NS SCH ×4 (08:07→21:00)
[2020-09-18] MEDS: TAMSULOSIN HCL 0.4 MG CAP.ER.24H PO SCH (08:11)
[2020-09-18] MEDS ORDERED: 0.9% NACL 500ML IV.SOLN 500 ML IV ONE (10:02)
[2020-09-18] MEDS: SODIUM BICARB 8.4% 50ML SYRING 150 MEQ in 0.9%NACL 1000ML 1,000 ML IVP SCH (10:24)
[2020-09-18] MEDS: VECURONIUM 10MG/10ML 50 MG in 0.9%NACL 50ML 50 ML IV SCH (14:33)
[2020-09-18] MEDS: PROPOFOL 1000 MG/100 ML 100 ML IV SCH (17:11)
[2020-09-18] MEDS: INSULIN GLARGINE 100 UNITS/ML 10 ML VIAL SQ SCH (21:01)
[2020-09-18] MEDS ORDERED: NOREPINEPHRIN 4MG/NS 250ML 0 ML IV ONE (21:23)
[2020-09-19] VITALS (29 sets, daily range): BP systolic 91–153; BP diastolic 49–94
[2020-09-19 03:58] LABS: ABG BASE EXCESS 14.3 mmol/L (-2.0-3.0); ABG OXYGEN SATURATION 92.7 % (95.0-99.0); ABG PCO2 88 mmHg (35-48)
[2020-09-19 04:02] LABS: ALBUMIN 3.8 g/dL (3.5-5.0); BILIRUBIN,TOTAL 3.7 mg/dL (0.2-1.0); CREATININE 0.7 mg/dL (0.5-1.5); MAGNESIUM 2.8 mg/dL (1.80-2.40); PHOSPHORUS 3.3 mg/dL (2.5-4.9); POTASSIUM 5.2 mmol/L (3.5-5.1); TOTAL PROTEIN, SERUM 5.8 g/dL (6.0-8.3)
[2020-09-19] MEDS: MEROPENEM 1 GM VIAL IVP SCH ×3 (05:16→21:41)
[2020-09-19] MEDS: SODIUM BICARB 8.4% 50ML SYRING 150 MEQ in 0.9%NACL 1000ML 1,000 ML IVP SCH ×2 (05:17→18:42)
[2020-09-19 05:36] LABS: BASOPHILS % (AUTO) 0.6 % (0.0-5.0); EOSINOPHILS % (AUTO) 0.2 % (0.0-8.0); HEMATOCRIT 34.8 % (42-54); LYMPHOCYTES % (AUTO) 3.6 % (21.0-51.0); MEAN CORPUSCULAR HEMOGLOBIN 31.5 pg (27.0-33.0); MEAN CORPUSCULAR HGB CONC 28.7 g/dL (32.0-36.0); MEAN CORPUSCULAR VOLUME 109.8 fL (79-99); MONOCYTES % (AUTO) 2.1 % (3.0-13.0); NEUTROPHILS % (AUTO) 90.1 % (40.0-77.0); NUCLEATED RED BLOOD CELLS 14.3 % (0.0-0.19); PLATELET COUNT (AUTO) 81 K/uL (130-400); RED BLOOD CELL COUNT(AUTO) 3.17 MIL/uL (4.50-6.20); RED CELL DISTRIBUTION WIDTH 20.3 % (11.0-15.5)
[2020-09-19 06:01] LABS: BAND NEUTROPHILS % (MANUAL) 2 % (0-2); EOSINOPHILS % (MANUAL) 1 % (1-6); LYMPHOCYTES % (MANUAL) 12 % (22-44); MAN.DIFF COMMENT-IMPRESSION MANUAL DIFFERENTIAL; SEGMENTED NEUTROPHILS % 85 % (40-70)
[2020-09-19] MEDS: ARTIFICAL TEARS SOL 15 ML OU SCH ×5 (07:16→23:49)
[2020-09-19] MEDS: INSULIN HUMULIN R 100 UNIT/ML 3ML SQ SCH ×4 (07:21→21:58)
[2020-09-19] MEDS: VANCOMYCIN 1G/250ML KIT 250 ML IV SCH ×2 (08:30→21:00)
[2020-09-19] MEDS: MIDODRINE HCL 5 MG TABLET PO SCH ×4 (08:30→21:41)
[2020-09-19] MEDS: DEXAMETHASONE SOD PHOSPHATE 4 MG/ML 1ML VIAL IVP SCH (08:30)
[2020-09-19] MEDS: DOCUSATE SODIUM 100 MG CAP PO SCH (08:30)
[2020-09-19] MEDS: ASCORBIC ACID 500 MG TAB PO SCH (08:31)
[2020-09-19] MEDS: TRYPSIN/BALSAM PERU/CASTOR OIL OINT 60GM TUBE TP SCH (08:31)
[2020-09-19] MEDS: PANTOPRAZOLE 40 MG TAB DR PO SCH ×2 (08:31→21:41)
[2020-09-19] MEDS: NACL NASAL SPRAY 120 SPRAY/BOTTLE NS SCH ×4 (08:31→21:00)
[2020-09-19] MEDS: ZINC SULFATE 220 CAPSULE PO SCH (08:31)
[2020-09-19] MEDS: PROPOFOL 1000 MG/100 ML 100 ML IV SCH (14:17)
[2020-09-19] MEDS: DEXMEDETOMIDINE HCL 400 MCG in 0.9%NACL 100ML 100 ML IV SCH (17:02)
[2020-09-19] MEDS: INSULIN GLARGINE 100 UNITS/ML 10 ML VIAL SQ SCH (22:01)
[2020-09-20] VITALS (36 sets, daily range): BP systolic 90–140; BP diastolic 48–87
[2020-09-20] MEDS: MEROPENEM 1 GM VIAL IVP SCH ×3 (04:01→21:08)
[2020-09-20] MEDS: ARTIFICAL TEARS SOL 15 ML OU SCH ×3 (04:01→17:11)
[2020-09-20] MEDS: SODIUM BICARB 8.4% 50ML SYRING 150 MEQ in 0.9%NACL 1000ML 1,000 ML IVP SCH (04:01)
[2020-09-20 05:33] LABS: BASOPHILS % (AUTO) 0.4 % (0.0-5.0); EOSINOPHILS % (AUTO) 0.4 % (0.0-8.0); HEMATOCRIT 31.5 % (42-54); MEAN CORPUSCULAR HEMOGLOBIN 32.3 pg (27.0-33.0); MEAN CORPUSCULAR HGB CONC 29.2 g/dL (32.0-36.0); MEAN CORPUSCULAR VOLUME 110.5 fL (79-99); MONOCYTES % (AUTO) 2.9 % (3.0-13.0); NEUTROPHILS % (AUTO) 90.5 % (40.0-77.0); NUCLEATED RED BLOOD CELLS 4.2 % (0.0-0.19); PLATELET COUNT (AUTO) 78 K/uL (130-400); RED BLOOD CELL COUNT(AUTO) 2.85 MIL/uL (4.50-6.20); RED CELL DISTRIBUTION WIDTH 21.2 % (11.0-15.5); WHITE BLOOD COUNT (AUTO) 11.4 K/uL (4.8-10.8)
[2020-09-20 05:57] LABS: ALBUMIN 3.1 g/dL (3.5-5.0); BILIRUBIN,TOTAL 3.2 mg/dL (0.2-1.0); CREATININE 1.4 mg/dL (0.5-1.5); POTASSIUM 5.2 mmol/L (3.5-5.1); TOTAL PROTEIN, SERUM 5.1 g/dL (6.0-8.3)
[2020-09-20] MEDS: PROPOFOL 1000 MG/100 ML 100 ML IV SCH ×3 (06:03→21:13)
[2020-09-20] MEDS: INSULIN HUMULIN R 100 UNIT/ML 3ML SQ SCH ×4 (07:24→21:00)
[2020-09-20] MEDS: NACL NASAL SPRAY 120 SPRAY/BOTTLE NS SCH ×4 (08:21→21:07)
[2020-09-20] MEDS: TRYPSIN/BALSAM PERU/CASTOR OIL OINT 60GM TUBE TP SCH (08:22)
[2020-09-20] MEDS: VANCOMYCIN 1G/250ML KIT 250 ML IV SCH (08:30)
[2020-09-20] MEDS: MIDODRINE HCL 5 MG TABLET PO SCH ×3 (08:30→21:08)
[2020-09-20] MEDS: DOCUSATE SODIUM 100 MG CAP PO SCH (08:31)
[2020-09-20] MEDS: DEXAMETHASONE SOD PHOSPHATE 4 MG/ML 1ML VIAL IVP SCH (08:31)
[2020-09-20] MEDS: PANTOPRAZOLE 40 MG TAB DR PO SCH ×2 (08:31→21:08)
[2020-09-20] MEDS: DEXTROSE 5%-WATER 1,000 ML IV SCH (10:07)
[2020-09-20] MEDS ORDERED: PHARMACY COMMUNICATION MISC SCH (15:00)
[2020-09-20] MEDS ORDERED: SODIUM BICARB 8.4% 50ML SYRING 150 MEQ in WATER FOR INJECTION,STERILE 1,000 ML IV SCH (16:30)
[2020-09-20] MEDS: VECURONIUM 10MG/10ML 50 MG in 0.9%NACL 50ML 50 ML IV SCH (21:13)
[2020-09-20] MEDS: DEXMEDETOMIDINE HCL 400 MCG in 0.9%NACL 100ML 100 ML IV SCH (21:14)
[2020-09-20] MEDS: INSULIN GLARGINE 100 UNITS/ML 10 ML VIAL SQ SCH (22:22)
[2020-09-21] VITALS (47 sets, daily range): BP systolic 99–145; BP diastolic 59–80
[2020-09-21] MEDS: ARTIFICAL TEARS SOL 15 ML OU SCH ×4 (00:10→16:52)
[2020-09-21 05:51] LABS: CREATININE 1.6 mg/dL (0.5-1.5); CRP QUANTITATIVE 29.1 mg/L (0.00-9.0); POTASSIUM 5.6 mmol/L (3.5-5.1)
[2020-09-21] MEDS: MEROPENEM 1 GM VIAL IVP SCH ×3 (07:13→21:48)
[2020-09-21] MEDS: INSULIN HUMULIN R 100 UNIT/ML 3ML SQ SCH ×4 (07:14→21:52)
[2020-09-21] MEDS: DOCUSATE SODIUM 100 MG CAP PO SCH (08:04)
[2020-09-21] MEDS: PANTOPRAZOLE 40 MG TAB DR PO SCH (08:04)
[2020-09-21] MEDS: NACL NASAL SPRAY 120 SPRAY/BOTTLE NS SCH ×4 (08:04→21:12)
[2020-09-21] MEDS: DEXAMETHASONE SOD PHOSPHATE 4 MG/ML 1ML VIAL IVP SCH (08:04)
[2020-09-21] MEDS: TRYPSIN/BALSAM PERU/CASTOR OIL OINT 60GM TUBE TP SCH (08:05)
[2020-09-21] MEDS: MIDODRINE HCL 5 MG TABLET PO SCH (08:08)
[2020-09-21] MEDS ORDERED: SODIUM BICARB 8.4% 50ML SYRING 150 MEQ in 0.9%NACL 1000ML 1,000 ML IVP SCH (09:45)
[2020-09-21] MEDS ORDERED: FENTANYL 2500MCG+NS 250ML 250 ML IV SCH (10:37)
[2020-09-21] MEDS ORDERED: PHARMACY COMMUNICATION MISC SCH (11:30)
[2020-09-21 12:14] LABS: ABG BASE EXCESS 17.9 mmol/L (-2.0-3.0); ABG HCO3 48.3 mmol/L (21.0-28.0); ABG OXYGEN SATURATION 92.4 % (95.0-99.0); ABG PCO2 103 mmHg (35-48)
[2020-09-21] MEDS ORDERED: VECURONIUM 10MG/10ML IV PRN (13:15)
[2020-09-21 13:47] LABS: ABG BASE EXCESS 15.8 mmol/L (-2.0-3.0); ABG HCO3 46.8 mmol/L (21.0-28.0); ABG OXYGEN SATURATION 94.4 % (95.0-99.0); ABG PCO2 90 mmHg (35-48)
[2020-09-21] MEDS: LANSOPRAZOLE 15 MG SOLU TAB PEG SCH (14:02)
[2020-09-21] MEDS: INSULIN GLARGINE 100 UNITS/ML 10 ML VIAL SQ SCH (21:51)
[2020-09-22] VITALS (37 sets, daily range): BP systolic 97–144; BP diastolic 53–80
[2020-09-22] MEDS: ARTIFICAL TEARS SOL 15 ML OU SCH ×3 (00:17→12:01)
[2020-09-22 04:22] LABS: ABG BASE EXCESS 13.3 mmol/L (-2.0-3.0); ABG HCO3 41.6 mmol/L (21.0-28.0); ABG OXYGEN SATURATION 98.1 % (95.0-99.0); ABG PCO2 81 mmHg (35-48)
[2020-09-22] MEDS: MEROPENEM 1 GM VIAL IVP SCH ×2 (04:45→18:02)
[2020-09-22 05:28] LABS: BASOPHILS % (AUTO) 0.2 % (0.0-5.0); EOSINOPHILS % (AUTO) 0.5 % (0.0-8.0); HEMATOCRIT 28.5 % (42-54); LYMPHOCYTES % (AUTO) 8.8 % (21.0-51.0); MEAN CORPUSCULAR HEMOGLOBIN 31.4 pg (27.0-33.0); MEAN CORPUSCULAR HGB CONC 28.8 g/dL (32.0-36.0); MEAN CORPUSCULAR VOLUME 109.2 fL (79-99); MONOCYTES % (AUTO) 4.7 % (3.0-13.0); NEUTROPHILS % (AUTO) 83.7 % (40.0-77.0); PLATELET COUNT (AUTO) 78 K/uL (130-400); RED BLOOD CELL COUNT(AUTO) 2.61 MIL/uL (4.50-6.20); RED CELL DISTRIBUTION WIDTH 21.2 % (11.0-15.5); WHITE BLOOD COUNT (AUTO) 8.6 K/uL (4.8-10.8)
[2020-09-22 05:51] LABS: POTASSIUM 5.3 mmol/L (3.5-5.1)
[2020-09-22] MEDS: INSULIN HUMULIN R 100 UNIT/ML 3ML SQ SCH ×4 (07:08→22:18)
[2020-09-22] MEDS: TRYPSIN/BALSAM PERU/CASTOR OIL OINT 60GM TUBE TP SCH (08:08)
[2020-09-22] MEDS: DEXAMETHASONE SOD PHOSPHATE 4 MG/ML 1ML VIAL IVP SCH (08:08)
[2020-09-22] MEDS: NACL NASAL SPRAY 120 SPRAY/BOTTLE NS SCH ×4 (08:08→21:11)
[2020-09-22] MEDS ORDERED: PHARMACY COMMUNICATION MISC SCH (09:00)
[2020-09-22] MEDS: DEXTROSE 5%-WATER 1,000 ML IV SCH ×2 (09:08→18:46)
[2020-09-22] MEDS: LANSOPRAZOLE 15 MG SOLU TAB PEG SCH (09:12)
[2020-09-22] MEDS: PROPOFOL 1000 MG/100 ML 100 ML IV SCH (15:41)
[2020-09-22] MEDS: INSULIN GLARGINE 100 UNITS/ML 10 ML VIAL SQ SCH (22:19)
[2020-09-23] VITALS (14 sets, daily range): BP systolic 103–128; BP diastolic 52–59
[2020-09-23] MEDS: ARTIFICAL TEARS SOL 15 ML OU SCH ×2 (01:27→09:03)
[2020-09-23 03:14] LABS: ABG BASE EXCESS 11.8 mmol/L (-2.0-3.0); ABG HCO3 39.5 mmol/L (21.0-28.0); ABG OXYGEN SATURATION 96.1 % (95.0-99.0); ABG PCO2 76 mmHg (35-48)
[2020-09-23 04:54] LABS: BASOPHILS % (AUTO) 0.3 % (0.0-5.0); EOSINOPHILS % (AUTO) 3.6 % (0.0-8.0); HEMATOCRIT 25.1 % (42-54); LYMPHOCYTES % (AUTO) 8.1 % (21.0-51.0); MEAN CORPUSCULAR HEMOGLOBIN 32.1 pg (27.0-33.0); MEAN CORPUSCULAR HGB CONC 31.1 g/dL (32.0-36.0); MEAN CORPUSCULAR VOLUME 103.3 fL (79-99); MONOCYTES % (AUTO) 4.4 % (3.0-13.0); NUCLEATED RED BLOOD CELLS 1.1 % (0.0-0.19); PLATELET COUNT (AUTO) 71 K/uL (130-400); RED BLOOD CELL COUNT(AUTO) 2.43 MIL/uL (4.50-6.20); RED CELL DISTRIBUTION WIDTH 20.7 % (11.0-15.5); WHITE BLOOD COUNT (AUTO) 7.5 K/uL (4.8-10.8)
[2020-09-23 05:46] LABS: CREATININE 2.2 mg/dL (0.5-1.5)
[2020-09-23] MEDS: MEROPENEM 1 GM VIAL IVP SCH (05:57)
[2020-09-23] MEDS: INSULIN HUMULIN R 100 UNIT/ML 3ML SQ SCH ×2 (05:58→12:52)
[2020-09-23 06:10] LABS: POTASSIUM 6.3 mmol/L (3.5-5.1)
[2020-09-23] MEDS: DEXTROSE 50%-WATER 50 ML DISP.SYRIN IV SCH ×2 (06:45→07:14)
[2020-09-23] MEDS ORDERED: INSULIN HUMULIN R 100 UNIT/ML 3ML IV SCH (06:45)
[2020-09-23] MEDS ORDERED: KAYEXALATE 15GM/60ML NG SCH (06:45)
[2020-09-23 08:19] LABS: CREATININE 2.5 mg/dL (0.5-1.5); POTASSIUM 5.2 mmol/L (3.5-5.1)
[2020-09-23] MEDS: TRYPSIN/BALSAM PERU/CASTOR OIL OINT 60GM TUBE TP SCH (09:03)
[2020-09-23] MEDS: NACL NASAL SPRAY 120 SPRAY/BOTTLE NS SCH (09:03)
[2020-09-23] MEDS: DEXAMETHASONE SOD PHOSPHATE 4 MG/ML 1ML VIAL IVP SCH (09:07)
[2020-09-23] MEDS: LANSOPRAZOLE 15 MG SOLU TAB PEG SCH (09:11)
[2020-09-23] MEDS: PROPOFOL 1000 MG/100 ML 100 ML IV SCH (09:13)
[2020-09-23] MEDS ORDERED: NOREPINEPHRIN 4MG/NS 250ML 250 ML IV ONE (11:35)
[2020-09-23 11:56] LABS: ABG BASE EXCESS 4.4 mmol/L (-2.0-3.0); ABG HCO3 40.4 mmol/L (21.0-28.0); ABG OXYGEN SATURATION 73.4 % (95.0-99.0); ABG PCO2 147 mmHg (35-48)
[2020-09-23] MEDS ORDERED: VANCOMYCIN PROTOCOL PER PHARMACY IV SCH (12:15)
[2020-09-23] MEDS ORDERED: NOREPINEPHRIN 4MG/NS 250ML 250 ML IV SCH (12:15)
[2020-09-23] MEDS ORDERED: PHARMACY COMMUNICATION MISC SCH ×3 (12:15→12:30)
[2020-09-23] MEDS ORDERED: SODIUM BICARB 8.4% 50ML SYRING 150 MEQ in WATER FOR INJECTION,STERILE 1,000 ML IV NR (13:15)
[2020-09-23] MEDS ORDERED: VANCOMYCIN 1G/250ML KIT 250 ML IV SCH (14:00)
[2020-09-23] MEDS ORDERED: COMPOUND IV REFRIGERATED 1 EACH IVSOLN MISC PRN (14:00)
[2020-09-23] MEDS ORDERED: [UNRECOGNIZED DRUG - OTHER] IV SCH (16:00)
[2020-09-23] MEDS ORDERED: MICAFUNGIN SODIUM IV SCH (16:00)
[2020-09-24] MEDS ORDERED: VANCOMYCIN 750MG + NS 250 ML IV SCH ×2 (09:00)
== END 2020-09-23 16:13 | disposition expired | DRG 870 ==
LOC: EDH 11:33 → EDHIP 15:14 → 2AH 17:49 → 2CH 08-29 10:36
PROVIDERS: ADMIT Internal Medicine; ATTEND Internal Medicine
PROC: 5A0955A Assistance with Respiratory Ventilation, Greater than 96 Consecutive Hours, High Flow/Velocity Cannula (ICD-10-PCS; 2020-08-20)
PROC: XW13325 Transfusion of Convalescent Plasma (Nonautologous) into Peripheral Vein, Percutaneous Approach, New Technology Group 5 (ICD-10-PCS; 2020-08-23)
PROC: 02HV33Z Insertion of Infusion Device into Superior Vena Cava, Percutaneous Approach (ICD-10-PCS; 2020-08-23)
PROC: XW033E5 Introduction of Remdesivir Anti-infective into Peripheral Vein, Percutaneous Approach, New Technology Group 5 (ICD-10-PCS; 2020-08-25)
PROC: 5A0935A Assistance with Respiratory Ventilation, Less than 24 Consecutive Hours, High Flow/Velocity Cannula (ICD-10-PCS; 2020-08-26)
PROC: 5A0935A Assistance with Respiratory Ventilation, Less than 24 Consecutive Hours, High Flow/Velocity Cannula (ICD-10-PCS; 2020-08-27)
PROC: 5A0935A Assistance with Respiratory Ventilation, Less than 24 Consecutive Hours, High Flow/Velocity Cannula (ICD-10-PCS; 2020-08-27)
PROC: 5A0935A Assistance with Respiratory Ventilation, Less than 24 Consecutive Hours, High Flow/Velocity Cannula (ICD-10-PCS; 2020-08-28)
PROC: 5A0935A Assistance with Respiratory Ventilation, Less than 24 Consecutive Hours, High Flow/Velocity Cannula (ICD-10-PCS; 2020-08-29)
PROC: 0BH17EZ Insertion of Endotracheal Airway into Trachea, Via Natural or Artificial Opening (ICD-10-PCS; 2020-08-29)
PROC: 5A1955Z Respiratory Ventilation, Greater than 96 Consecutive Hours (ICD-10-PCS; principal; 2020-08-31)
PROC: 5A0935A Assistance with Respiratory Ventilation, Less than 24 Consecutive Hours, High Flow/Velocity Cannula (ICD-10-PCS; 2020-09-04)
PROC: 5A1955Z Respiratory Ventilation, Greater than 96 Consecutive Hours (ICD-10-PCS; 2020-09-04)
PROC: 0B9L8ZX Drainage of Left Lung, Via Natural or Artificial Opening Endoscopic, Diagnostic (ICD-10-PCS; 2020-09-05)
PROC: 30233N1 Transfusion of Nonautologous Red Blood Cells into Peripheral Vein, Percutaneous Approach (ICD-10-PCS; 2020-09-09)
PROC: 0DJ08ZZ Inspection of Upper Intestinal Tract, Via Natural or Artificial Opening Endoscopic (ICD-10-PCS; 2020-09-10)
DX: A41.9 Sepsis, unspecified organism (principal); U07.1 COVID-19; J12.82 Pneumonia due to coronavirus disease 2019; J80 Acute respiratory distress syndrome; J15.6 Pneumonia due to other Gram-negative bacteria; J15.211 Pneumonia due to Methicillin susceptible Staphylococcus aureus; K72.00 Acute and subacute hepatic failure without coma; N17.0 Acute kidney failure with tubular necrosis; R65.21 Severe sepsis with septic shock; T79.7XXA Traumatic subcutaneous emphysema, initial encounter; E87.1 Hypo-osmolality and hyponatremia; D68.59 Other primary thrombophilia; N17.9 Acute kidney failure, unspecified; N39.0 Urinary tract infection, site not specified; E87.0 Hyperosmolality and hypernatremia; I24.8 Other forms of acute ischemic heart disease; J94.2 Hemothorax; R57.8 Other shock; I25.10 Atherosclerotic heart disease of native coronary artery without angina pectoris; E78.5 Hyperlipidemia, unspecified; Z95.5 Presence of coronary angioplasty implant and graft; I25.2 Old myocardial infarction; K52.9 Noninfective gastroenteritis and colitis, unspecified; D64.9 Anemia, unspecified; D69.6 Thrombocytopenia, unspecified; E11.22 Type 2 diabetes mellitus with diabetic chronic kidney disease; I12.9 Hypertensive chronic kidney disease with stage 1 through stage 4 chronic kidney disease, or unspecified chronic kidney disease; E78.00 Pure hypercholesterolemia, unspecified; E87.5 Hyperkalemia; K75.89 Other specified inflammatory liver diseases; N18.9 Chronic kidney disease, unspecified; R13.12 Dysphagia, oropharyngeal phase; Z74.01 Bed confinement status; Z87.01 Personal history of pneumonia (recurrent); R53.81 Other malaise; L89.152 Pressure ulcer of sacral region, stage 2; X58.XXXA Exposure to other specified factors, initial encounter; Y93.89 Activity, other specified; Y92.89 Other specified places as the place of occurrence of the external cause; Y99.8 Other external cause status
CPT/HCPCS: 31500; 36415; 36430; 36569; 36600; 43235; 71045; 74018; 76705; 80048; 80053; 80202; 81001; 82270; 82435; 82533; 82550; 82728; 82803; 82947; 82948; 83010; 83036; 83540; 83550; 83605; 83615; 83735; 83874; 84100; 84132; 84145; 84295; 84443; 84478; 84484; 85014; 85018; 85025; 85027; 85378; 85384; 85610; 85651; 85730; 86140; 86606; 86850; 86900; 86901; 86923; 86927; 87040; 87071; 87077; 87088; 87116; 87186; 87205; 87206; 87426; 92950; 93005; 93306; 93356; 93970; 93971; 94002; 94003; C1751; C1894; C9113; G0378; J0456; J0610; J0692; J0696; J1100; J1650; J1815; J1940; J2020; J2060; J2185; J2248; J2370; J2704; J2930; J3010; J3370; J3480; J3490; J7030; J7040; J7050; J7070; J7120; P9016; P9046